=== PATIENT | female | born 1975 | race Caucasian/White ===

== ENCOUNTER 2018-01-18 13:10 | Emergency (ER) ==
[2018-01-18 13:22] VITALS: BP 131/81; TEMP 97.6; BMI 35.5
[2018-01-18] MEDS ORDERED: SODIUM CHLORIDE 1,000 ML IV STA (13:28)
[2018-01-18] MEDS ORDERED: ZOFRAN 4 MG/2 ML IVP STA (13:29)
[2018-01-18] MEDS ORDERED: DILAUDID 1 MG/ML SYRINGE IVP STA (13:29)
--- NOTE | 2018-01-18 13:33 | ED.PDOC ---
General ED Provider: Dr. ARIANA HERNANDEZ-ER Chief Complaint: Rash Stated Complaint: raj got this boil on my bottom--it popped a few weeks ago and now its back Time Seen by Physician: 13:31 Mode of Arrival: Walk-In Information Source: Patient, Family Primary Care Provider: QUENTIN LEONARD Nursing and Triage Documentation Reviewed and Agree: Yes Reviewed sepsis parameters & appropriate labs ordered?: Yes System Inflammatory Response Syndrome: Not Applicable Sepsis Protocol: For patient's 13 years and over: Temp is 96.8 and below OR 101 and greater Pulse >90 BPM Resp >20/minute Acutely Altered Mental Status Are patient's symptoms suggestive of a new infection, such as: -Pneumonia -Skin, Soft Tissue -Endocarditis -UTI -Bone, Joint Infection -Implantable Device -Acute Abdominal Infection -Wound Infection -Meningitis -Blood Stream Catheter Infection -Unknown Skin Complaint Exam - Skin/Soft Tissue Complaint/Exam Onset/Duration: 3 weeks ago Symptoms Are: Still present Timing: Constant Initial Severity: Mild Current Severity: Moderate Location: right buttock Character: Reports: Redness, Swelling, Raised, Painful Aggravating: Reports: Touch Alleviating: Reports: None Associated Signs and Symptoms: Reports: Fever, Chills, Drainage, Tenderness. Denies: Itching, Bruising, Red streaks, Joint swelling Related Surgical History: Reports: None Recent Exposure to Others w/Similar Symptoms: No Skin Findings: Present: Erythema, Fluctuant mass Joint Tenderness Present: No Differential Diagnoses: Abscess, Other Review of Systems - Review Of Systems Constitutional: Reports: No symptoms Eyes: Reports: No symptoms Ears, Nose, Mouth, Throat: Reports: No symptoms Respiratory: Reports: No symptoms Cardiac: Reports: No symptoms GI: Reports: No symptoms : Reports: No symptoms Musculoskeletal: Reports: No symptoms Skin: Reports: Lumps Neurological: Reports: No symptoms Endocrine: Reports: No symptoms Hematologic/Lymphatic: Reports: No symptoms All Other Systems: Reviewed and Negative Past Medical History - Past Medical History Previously Healthy: No Endocrine: Reports: DM 2, Hypothyroid Cardiovascular: Reports: None Respiratory: Reports: Asthma Hematological: Reports: None Gastrointestinal: Reports: None Genitourinary: Reports: None Neuro/Psych: Reports: Migraine Musculoskeletal: Reports: None Cancer: Reports: None Last Menstrual Period: 01/16/2018 - Surgical History General Surgical History: Reports: Cholecystectomy - Family History Family History: Reports: Unknown - Social History Smoking Status: Current every day smoker Hx Substance Use: No Alcohol Screening: None - Immunizations Tetanus Shot up to Date: Yes Physical Exam - Physical Exam Appearance: Well-appearing, No pain distress, Well-nourished Pain Distress: Moderate Eyes: EDUARDO, EOMI, Conjunctiva clear ENT: Ears normal Neck: Supple Respiratory: Airway patent, Breath sounds clear, Breath sounds equal, Respirations nonlabored Cardiovascular: RRR, Pulses normal, No rub, No murmur GI/: Soft, Nontender, No masses, Bowel sounds normal, No Organomegaly Musculoskeletal: Normal strength Skin: Warm, Dry, Normal color Neurological: Sensation intact, Alert Psychiatric: Affect appropriate, Mood appropriate, Anxious Critical Care Note - Critical Care Note Total Time (mins): 0 Course - Course Orders, Labs, Meds: Orders Category Date Time Status ED IV/MEDIPORT/POWERPORT .ONCE EMERGENCY 01/18/18 13:27 Active BLOOD CULTURE (ED ONLY) Stat LAB 01/18/18 Ordered CBC W/ AUTO DIFF Stat LAB 01/18/18 13:25 Ordered COMPREHENSIVE METABOLIC PANEL Stat LAB 01/18/18 13:25 Ordered LACTIC ACID Stat LAB 01/18/18 13:27 Ordered PROCALCITONIN Stat LAB 01/18/18 Ordered SERUM Stat LAB 01/18/18 13:27 Ordered 0.9 % Sodium Chloride [Saline Flush] MEDS 01/18/18 13:27 Ordered 1 syr IVF PRN PRN Hydromorphone HCl [Dilaudid 1 mg/ml Syringe] MEDS 01/18/18 13:29 Discontinued 1 mg IVP ONCE STA Ondansetron HCl/Pf [Zofran 4 mg/2 ml] MEDS 01/18/18 13:29 Discontinued 4 mg IVP ONCE STA Sodium Chloride 0.9% [Sodium Chloride] 1,000 ml MEDS 01/18/18 13:28 Active IV 100 mls/hr Vancomycin HCl [Vancomycin] 1,000 mg MEDS 01/18/18 13:29 Active 0.9 % Sodium Chloride [Sodium Chloride] 200 ml IV ONCE Medications Generic Name Dose Route Start Last Admin Trade Name Freq PRN Reason Stop Dose Admin Sodium Chloride 1,000 mls @ 100 mls/hr 01/18/18 13:28 Sodium Chloride IV 01/18/18 23:27 .Q10H STA Vancomycin HCl 1,000 mg/ 200 mls @ 100 mls/hr 01/18/18 13:29 Sodium Chloride IV 01/18/18 15:28 ONCE STA Sodium Chloride 1 syr 01/18/18 13:27 Saline Flush IVF PRN PRN To flush IV Discontinued Medications Generic Name Dose Route Start Last Admin Trade Name Freq PRN Reason Stop Dose Admin Hydromorphone HCl 1 mg 01/18/18 13:29 Dilaudid 1 Mg/Ml Syringe IVP 01/18/18 13:30 ONCE STA Ondansetron HCl 4 mg 01/18/18 13:29 Zofran 4 Mg/2 Ml IVP 01/18/18 13:30 ONCE STA Vital Signs: Temp Pulse Resp BP Pulse Ox 01/18/18 13:19 97.6 F 99 H 18 131/81 97 Departure - Departure Time of Disposition: 13:33 Disposition: HOME SELF-CARE Discharge Problem: Perirectal abscess Instructions: Abscess (ED) Condition: Good Pt referred to PMD for follow-up: No IPMP verified?: No Allergies/Adverse Reactions: Allergies amoxicillin [Amoxicillin] Adverse Reaction (Verified 04/22/16 08:44) cefaclor [From Ceclor] Adverse Reaction (Verified 04/22/16 08:44) cephalexin monohydrate [From Keflex] Adverse Reaction (Verified 04/22/16 08:44) ciprofloxacin [From Cipro] Adverse Reaction (Verified 04/22/16 08:44) ciprofloxacin HCl [From Cipro] Adverse Reaction (Verified 04/22/16 08:44) Latex, Natural Rubber Adverse Reaction (Verified 04/22/16 08:44) meperidine HCl [From Demerol] Adverse Reaction (Verified 04/22/16 08:44) Penicillins Adverse Reaction (Verified 04/22/16 08:44) Sulfa (Sulfonamide Antibiotics) Adverse Reaction (Verified 04/22/16 08:44) Home Medications: Ambulatory Orders Albuterol Sulfate [Proair Hfa] 2 puff IH Q6H PRN 11/18/13 Cyclobenzaprine HCl [Flexeril] 10 mg PO DAILY 11/18/13 Insulin Lispro [Humalog] 0 unit SQ DAILY 11/18/13 Gabapentin 900 mg PO QID 11/10/15 Albuterol Sulfate 0.083% Neb [Albuterol 0.083% Neb] 1 vial NEB RTQ4H 04/22/16 Hydrocodone/Acetaminophen [[place] 10-325 Tablet] 1 each PO QID PRN 04/22/16 Acetaminophen [Tylenol Extra Strength] 1 tab PO TID PRN 01/18/18 Clindamycin HCl 300 mg PO TID 01/18/18 Ibuprofen 600 mg PO BID 01/18/18 Lidocaine [Lidocaine Ointment 5%] 1 applic SUBDERMAL PRN PRN 01/18/18 Transfer Form Completed: Yes Disposition Discussed With: Patient, Family
[2018-01-18] MEDS ORDERED: VANCOMYCIN ONE (13:55)
[2018-01-18] MEDS: VANCOMYCIN 1,000 MG in SODIUM CHLORIDE 200 ML IV STA ×2 (14:03→14:59)
== END 2018-01-18 15:13 | disposition short-term general hospital (02) ==
LOC: ED 13:10
DX: K61.1 Rectal abscess (principal); F17.210 Nicotine dependence, cigarettes, uncomplicated
CPT/HCPCS: 36415; 80053; 83605; 84145; 84703; 85025; 87040; 96365; 96366; 96375; 99285

== ENCOUNTER 2018-01-18 15:18 | Outpatient (CLI) ==
[2018-01-18 13:22] VITALS: BMI 35.5
== END 2018-01-18 15:19 | disposition short-term general hospital (02) ==
LOC: AMBL 15:18
PROVIDERS: ATTEND Family Medicine
DX: K61.1 Rectal abscess (principal)

== ENCOUNTER 2018-03-25 15:21 | Emergency (ER) ==
[2018-03-25 15:29] VITALS: TEMP 98.7; BMI 35.0
[2018-03-25] MEDS ORDERED: ASPIRIN CHEWABLE PO STA (15:45)
--- NOTE | 2018-03-25 16:08 | DI ---
EXAM: Chest one view, frontal view only. HISTORY: Chest pain. COMPARISON: 04/22/2016. FINDINGS: The heart size is normal. There is no pulmonary vascular congestion. The lungs are clear . No pleural effusion or pneumothorax is seen. No acute osseous abnormality is identified. Since t he prior study, there has been no significant interval change. IMPRESSION: No acute cardiopulmonary process.
[2018-03-25 17:08] VITALS: BP 147/104
--- NOTE | 2018-03-25 17:21 | ED.PDOC ---
General ED Provider: Dr. TASHA LAO Chief Complaint: Shortness of Air Stated Complaint: CHEST PAIN Time Seen by Physician: 15:30 (THIS MORING WHILE WORKING AT [employer]) Mode of Arrival: Walk-In Information Source: Patient Exam Limitations: No limitations Primary Care Provider: QUENTIN LEONARD Referred to ED by: Other (SMOKES 1PK/DAY) Nursing and Triage Documentation Reviewed and Agree: Yes (NO CHEST INJURY) Reviewed sepsis parameters & appropriate labs ordered?: Yes System Inflammatory Response Syndrome: Not Applicable Sepsis Protocol: For patient's 13 years and over: Temp is 96.8 and below OR 101 and greater Pulse >90 BPM Resp >20/minute Acutely Altered Mental Status Are patient's symptoms suggestive of a new infection, such as: -Pneumonia -Skin, Soft Tissue -Endocarditis -UTI -Bone, Joint Infection -Implantable Device -Acute Abdominal Infection -Wound Infection -Meningitis -Blood Stream Catheter Infection -Unknown System Inflammatory Response Syndrome: Not Applicable Cardiovascular Complaint Exam - Chest Pain Complaint/Exam Onset: Gradual Duration: TODAY AT WORK Symptoms Are: Resolved Timing: Constant, Intermittent Length of Chest Pain Episodes: ALL DAY LONG Initial Severity: Moderate Current Severity: None Location: Reports: 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 Denies: Diaphoresis, Nausea, Vomiting, Fever, Palpitations, Cough, Hemoptysis, Back pain, Abdominal pain, Dizziness, Calf pain, Calf swelling Related History: Reports: Similar episode (FOR 1 YEAR) Related Surgical History: Reports: None History of Healthcare-Acquired Pneumonia: Reports: No AMI/ACS Risk Factors: Reports: Diabetes, Hypertension, Smoking, Dyslipidemia TAD Risk Factors: Reports: Hypertension, Smoking Pulmonary Embolism Risk Factors: Reports: Smoking Prior Care for this Complaint: No Recent Stress Test: No Recent Echo/LV Function: No JVD Present: No Subcutaneous Emphysema Present: No Diminshed Breath Sounds: No Reproducible Chest Wall Pain: No Bilateral Pulses Present: No Unequal Pulses Noted: No If Risk Factors for AMI/ACS Consider: EKG, Cardiac Enzymes Differential Diagnoses: Unstable Angina Quality Indicators For Acute MN or Cardiac Chest Pain: EKG in 10min. Review of Systems - Review Of Systems Constitutional: Reports: No symptoms Eyes: Reports: No symptoms Ears, Nose, Mouth, Throat: Reports: No symptoms Respiratory: Reports: Short of air (AT ONSET) Cardiac: Reports: Chest pain GI: Reports: No symptoms : Reports: No symptoms Musculoskeletal: Reports: No symptoms Skin: Reports: No symptoms Neurological: Reports: No symptoms Endocrine: Reports: No symptoms Hematologic/Lymphatic: Reports: No symptoms All Other Systems: Reviewed and Negative Past Medical History - Past Medical History Previously Healthy: No Endocrine: Reports: DM 2, Hypothyroid Cardiovascular: Reports: None Respiratory: Reports: Asthma Hematological: Reports: None Gastrointestinal: Reports: None Genitourinary: Reports: None Neuro/Psych: Reports: Migraine Musculoskeletal: Reports: None Cancer: Reports: None Last Menstrual Period: last month - Surgical History General Surgical History: Reports: Cholecystectomy - Family History Family History: Reports: Unknown - Social History Smoking Status: Current every day smoker, Heavy tobacco smoker Hx Substance Use: No Alcohol Screening: None Physical Exam - Physical Exam Appearance: Well-appearing, No pain distress, Well-nourished Eyes: EDUARDO, EOMI, Conjunctiva clear ENT: Ears normal, Nose normal, Oropharynx normal Respiratory: Airway patent, Breath sounds clear, Breath sounds equal, Respirations nonlabored Cardiovascular: RRR, Pulses normal, No rub, No murmur GI/: Soft, Nontender, No masses, Bowel sounds normal, No Organomegaly Musculoskeletal: Normal strength, ROM intact, No edema, No calf tenderness Skin: Warm, Dry, Normal color Neurological: Sensation intact, Motor intact, Reflexes intact, Cranial nerves intact, Alert, Oriented Psychiatric: Affect appropriate, Mood appropriate Interpretation - Radiology Interpretation Radiology Results: Negative Exam Interpreted: CXR Radiology Interpretation By: Radiologist - Director Of [employer] Rate: Normal Rhythm: Sinus Ectopy: None - EKG Interpretation Rate: Normal Rhythm: Sinus Ectopy: None [place]: NL ST Segment: Normal Re-Evaluation - Re-Evaluation Time of Re-Evaluation: 16:00 Status: Improved Vital Signs Stable: Yes Pain Level: 0 Appearance: NAD Lungs: Clear Skin: Warm and Dry Neuro: Alert and Oriented X3 CV: RRR - Re-Evaluation Time of Re-Evaluation: 17:24 Status: Improved Vital Signs Stable: Yes Pain Level: 0 Appearance: NAD Skin: Warm and Dry Neuro: Alert and Oriented X3 CV: RRR Critical Care Note - Critical Care Note Total Time (mins): 0 Course - Course Hematology/Chemistry: 03/25/18 15:35 03/25/18 15:45 Orders, Labs, Meds: Lab Review 03/25/18 03/25/18 03/25/18 15:35 15:45 15:45 WBC 10.79 H RBC 4.40 Hgb 14.2 Hct 38.9 MCV 88.4 MCH 32.3 H MCHC 36.5 H RDW Coeff of Nae 12.4 Plt Count 170 Immature Gran % (Auto) 0.4 Neut % (Auto) 54.1 Lymph % (Auto) 38.3 [place] % (Auto) 6.1 Eos % (Auto) 0.8 Baso % (Auto) 0.3 Immature Gran # (Auto) 0.0 Neut # (Auto) 5.8 Lymph # (Auto) 4.1 H [place] # (Auto) 0.7 Eos # (Auto) 0.1 Baso # (Auto) 0.0 PT 11.1 H INR 1.11 APTT 26.8 Sodium 136 Potassium 3.7 Chloride 100 Carbon Dioxide 25 Anion Gap 14.7 BUN 12 Creatinine 0.72 Estimated GFR (MDRD) 88.00 BUN/Creatinine Ratio 16.66 Glucose 252 H Calcium 9.6 Total Bilirubin 0.3 AST 40 H ALT 49 Alkaline Phosphatase 146 H Total Creatine Kinase 47 Troponin I < 0.0100 Total Protein 8.1 Albumin 3.2 L Globulin 4.9 Albumin/Globulin Ratio 0.65 Orders Category Date Time Status EKG-(ED ONLY) Stat CARDIO 03/25/18 15:45 Stop Req EKG-(ED ONLY) Stat CARDIO 03/25/18 17:13 Ordered ED IV/MEDIPORT/POWERPORT .ONCE EMERGENCY 03/25/18 15:45 Active CBC W/ AUTO DIFF Stat LAB 03/25/18 15:35 Completed COMPREHENSIVE METABOLIC PANEL Stat LAB 03/25/18 15:45 Completed CREATINE KINASE Stat LAB 03/25/18 15:45 Completed PARTIAL THROMBOPLASTIN TIME Stat LAB 03/25/18 15:45 Completed PT WITH INR Stat LAB 03/25/18 15:45 Completed TROPONIN I Stat LAB 03/25/18 15:45 Completed 0.9 % Sodium Chloride [Saline Flush] MEDS 03/25/18 15:44 Active 1 syr IVF PRN PRN CHEST, 1V AP ONLY Stat RADS 03/25/18 15:44 Completed Medications Generic Name Dose Route Start Last Admin Trade Name Freq PRN Reason Stop Dose Admin Sodium Chloride 1 syr 03/25/18 15:44 Saline Flush IVF PRN PRN To flush IV Vital Signs: Temp Pulse Resp BP Pulse Ox 03/25/18 17:07 88 13 147/104 H 98 03/25/18 15:21 98.7 F 102 H 20 162/90 H 98 RADHA Risk Score RADHA Risk Score: Risk Score Odds of by 30D 0 0.1 (0.1-0.2) 1 0.3 (0.2-0.3) 2 0.4 (0.3-0.5) 3 0.7 (0.6-0.9) 4 1.2 (1.0-1.5) 5 2.2 (1.9-2.6) 6 3.0 (2.5-3.6) 7 4.8 (3.8-6.1) Departure - Departure Time of Disposition: 17:25 Disposition: AMA Discharge Problem: Chest pain Qualifiers: Chest pain type: unspecified Qualified Code(s): R07.9 - Chest pain, unspecified Instructions: Chest Pain (ED) Condition: Good Pt referred to PMD for follow-up: Yes IPMP verified?: No Additional Instructions: Please call your Family Physician as soon as possible to schedule a follow-up appointment. Allergies/Adverse Reactions: Allergies amoxicillin [Amoxicillin] Adverse Reaction (Verified 03/25/18 15:30) cefaclor [From Ceclor] Adverse Reaction (Verified 03/25/18 15:30) cephalexin monohydrate [From Keflex] Adverse Reaction (Verified 03/25/18 15:30) ciprofloxacin [From Cipro] Adverse Reaction (Verified 03/25/18 15:30) ciprofloxacin HCl [From Cipro] Adverse Reaction (Verified 03/25/18 15:30) Latex, Natural Rubber Adverse Reaction (Verified 03/25/18 15:30) meperidine HCl [From Demerol] Adverse Reaction (Verified 03/25/18 15:30) Penicillins Adverse Reaction (Verified 03/25/18 15:30) Sulfa (Sulfonamide Antibiotics) Adverse Reaction (Verified 03/25/18 15:30) Home Medications: Ambulatory Orders Albuterol Sulfate [Proair Hfa] 2 puff IH Q6H PRN 11/18/13 Cyclobenzaprine HCl [Flexeril] 10 mg PO DAILY 11/18/13 Insulin Lispro [Humalog] 0 unit SQ DAILY 11/18/13 Gabapentin 900 mg PO BEDTIME 11/10/15 Albuterol Sulfate 0.083% Neb [Albuterol 0.083% Neb] 1 vial NEB RTQ4H 04/22/16 Hydrocodone/Acetaminophen [[place] 10-325 Tablet] 1 each PO QID PRN 04/22/16 Acetaminophen [Tylenol Extra Strength] 1 tab PO TID PRN 01/18/18 Ibuprofen 600 mg PO BID 01/18/18 Ibuprofen 800 mg PO BEDTIME 03/25/18 Disposition Discussed With: Patient
[2018-03-25] MEDS ORDERED: ZESTRIL PO STA (17:23)
== END 2018-03-25 17:45 | disposition left against medical advice (07) ==
LOC: ED 15:21
DX: R07.9 Chest pain, unspecified (principal); R06.02 Shortness of breath; I10 Essential (primary) hypertension; E78.5 Hyperlipidemia, unspecified; E11.9 Type 2 diabetes mellitus without complications; F17.210 Nicotine dependence, cigarettes, uncomplicated; E03.9 Hypothyroidism, unspecified; Z79.899 Other long term (current) drug therapy
CPT/HCPCS: 36415; 80053; 82550; 84484; 85025; 85610; 85730; 93005; 93010; 99284

== ENCOUNTER 2018-05-06 09:11 | Outpatient (CLI) ==
--- NOTE | 2018-05-06 10:53 | US ---
EXAM: Right breast ultrasound. History: Right breast palpable abnormality. Comparison: Bilateral mammogram 05/06/2018 Technique: Multiple sonographic images through the right breast were obtained. Color duplex Doppler was used to interrogate vascular flow. Findings: At 1 o'clock 14 cm from nipple in the area of concern anterior depth there is a 1.7 cm wel l circumscribed oval lesion. No other abnormalities are seen. Impression: Lesion within the right breast is most compatible with a benign lipoma or benign hamarto ma. Recommend followup routine screening mammography in 1 year. BIRADS 2
--- NOTE | 2018-05-06 12:17 | MAMMO ---
EXAM: Bilateral digital diagnostic mammogram (2-D and 3-D) History: Right breast palpable abnormality. Comparison: None available. Findings: MLO and CC views of bilateral breasts demonstrate scattered fibroglandular breast parenchy ma. Benign bilateral breast calcifications. No dominant masses and no architectural distortions. C AD was reviewed by the radiologist. Tomosynthesis was performed. Impression: Although no mammographic abnormalities are identified, recommend further evaluation with right breast ultrasound for the palpable event. BIRADS 0
== END 2018-05-06 09:12 | disposition home or self-care (01) ==
LOC: RAD 09:11
PROVIDERS: ATTEND Nurse Practitioner Family
DX: N63.12 Unspecified lump in the right breast, upper inner quadrant (principal)

== ENCOUNTER 2018-12-28 22:35 | Emergency (ER) ==
[2018-12-28 22:50] VITALS: BP 146/84; TEMP 98.7; BMI 33.2
--- NOTE | 2018-12-28 23:58 | ED.PDOC ---
General ED Provider: Dr. ARIANA HERNANDEZ-ER Chief Complaint: Syncope Stated Complaint: i was in the bathroom urinating and i passed out and hit my head--i have done this before Time Seen by Physician: 22:40 Mode of Arrival: Walk-In Information Source: Patient Exam Limitations: No limitations Primary Care Provider: QUENTIN LEONARD Nursing and Triage Documentation Reviewed and Agree: Yes Does patient meet sepsis criteria?: No System Inflammatory Response Syndrome: Not Applicable Sepsis Protocol: For patient's 13 years and over: Temp is 96.8 and below OR 101 and greater Pulse >90 BPM Resp >20/minute Acutely Altered Mental Status Are patient's symptoms suggestive of a new infection, such as: -Pneumonia -Skin, Soft Tissue -Endocarditis -UTI -Bone, Joint Infection -Implantable Device -Acute Abdominal Infection -Wound Infection -Meningitis -Blood Stream Catheter Infection -Unknown Neurological Complaint Exam - Syncope/Near Syncope Complaint/Exam Onset/Duration: today Symptoms Are: Resolved Number of Episodes: 1 Episodes Witnessed: Yes Loss of Consciousness: Yes Associated Head Trauma: Yes Activity at Onset: Unknown Aggravating: None Alleviating: Reports: Spontaneous resolution Associated Signs and Symptoms: Reports: Pain, Headache, Recent head trauma Related History: Similar episode Cardiac Risk Factors: Reports: Hypertension, Diabetes JVD Present: No Carotid Bruit Present: No Glascow Coma Scale (see protocol): 15 Nystagmus Present: No Gag Reflex Present: Yes Meningeal Signs Positive: No Focal Weakness: Present: None Focal Sensory Loss: Present: None Gait: Normal [id number]: Normal Findings Heel to Toe Normal: Yes Differential Diagnoses: Dysrhythmia, Insulin Rx, Medication Reaction, Vasovagal Episode Quality Indicator For Non-Traumatic Chest Pain/Syncope: EKG Performed Review of Systems - Review Of Systems Constitutional: Reports: No symptoms Eyes: Reports: No symptoms Ears, Nose, Mouth, Throat: Reports: No symptoms Respiratory: Reports: No symptoms Cardiac: Reports: Syncope GI: Reports: No symptoms : Reports: No symptoms Musculoskeletal: Reports: No symptoms Skin: Reports: No symptoms Neurological: Reports: Other (syncope) Endocrine: Reports: No symptoms Hematologic/Lymphatic: Reports: No symptoms All Other Systems: Reviewed and Negative Past Medical History - Past Medical History Previously Healthy: No Endocrine: Reports: DM 2, Hypothyroid Cardiovascular: Reports: None Respiratory: Reports: Asthma Hematological: Reports: None Gastrointestinal: Reports: None Genitourinary: Reports: None Neuro/Psych: Reports: Migraine Musculoskeletal: Reports: None Cancer: Reports: None Last Menstrual Period: 2 weeks ago - Surgical History General Surgical History: Reports: Cholecystectomy - Family History Family History: Reports: Unknown - Social History Smoking Status: Current every day smoker, Heavy tobacco smoker Hx Substance Use: No Alcohol Screening: None - Immunizations Tetanus Shot up to Date: Yes Physical Exam - Physical Exam Appearance: Well-appearing, No pain distress, Well-nourished Pain Distress: Mild Eyes: EDUARDO, EOMI, Conjunctiva clear ENT: Ears normal, Nose normal, Oropharynx normal Neck: Supple Respiratory: Airway patent, Breath sounds clear, Breath sounds equal, Respirations nonlabored Cardiovascular: RRR, Pulses normal, No rub, No murmur GI/: Soft, Nontender, No masses, Bowel sounds normal, No Organomegaly Musculoskeletal: Normal strength, ROM intact, No edema, No calf tenderness Skin: Warm, Dry, Normal color Neurological: Sensation intact, Motor intact, Reflexes intact, Cranial nerves intact, Alert, Oriented Psychiatric: Affect appropriate, Mood appropriate Interpretation - Radiology Interpretation Radiology Interpretation By: Radiologist Radiology Results: Negative Exam Interpreted: CT Scan - EKG Interpretation Time of EKG #1: 00:05 Rate: Normal Rhythm: Sinus Ectopy: None [place]: NL ST Segment: Normal Interpretation: nsr Critical Care Note - Critical Care Note Total Time (mins): 0 Course - Course Hematology/Chemistry: 12/28/18 23:20 12/28/18 23:20 Orders, Labs, Meds: Lab Review 12/28/18 12/28/18 12/28/18 23:05 23:20 23:20 WBC 11.71 H RBC 4.57 Hgb 14.3 Hct 40.1 MCV 87.7 MCH 31.3 H MCHC 35.7 H RDW Coeff of Nae 12.4 Plt Count 175 Immature Gran % (Auto) 0.3 Neut % (Auto) 58.2 Lymph % (Auto) 36.4 Hart % (Auto) 4.3 Eos % (Auto) 0.5 Baso % (Auto) 0.3 Immature Gran # (Auto) 0.0 Neut # (Auto) 6.8 Lymph # (Auto) 4.3 H Hart # (Auto) 0.5 Eos # (Auto) 0.1 Baso # (Auto) 0.0 Sodium 132.9 L Potassium 4.24 Chloride 96.5 L Carbon Dioxide 26.3 Anion Gap 14.34 BUN 18.1 H Creatinine 0.51 L Estimated GFR (MDRD) 131.00 BUN/Creatinine Ratio 35.49 Glucose 547.1 H* Hemoglobin A1c Calcium 8.95 Total Bilirubin 0.31 AST 39.5 H ALT 42.5 H Alkaline Phosphatase 180.6 H Total Creatine Kinase 34.6 Troponin I < 0.012 Total Protein 7.41 Albumin 3.78 Globulin 3.63 Albumin/Globulin Ratio 1.04 Serum , Qual Urine Color Yellow Urine Clarity Clear Urine pH 6.0 Ur Specific [place] <=1.005 Urine Protein Negative Urine Glucose (UA) 2+ Urine Ketones Negative Urine Blood Trace-intact Urine Nitrite Negative Urine Bilirubin Negative Urine Urobilinogen 0.2 Ur Leukocyte Esterase Negative Urine Microscopic RBC 0-2 Urine Microscopic WBC 0-2 Ur Squamous Epith Cells 2-5 Urine Bacteria Trace 12/28/18 12/28/18 23:20 23:20 WBC RBC Hgb Hct MCV MCH MCHC RDW Coeff of Nae Plt Count Immature Gran % (Auto) Neut % (Auto) Lymph % (Auto) Hart % (Auto) Eos % (Auto) Baso % (Auto) Immature Gran # (Auto) Neut # (Auto) Lymph # (Auto) Hart # (Auto) Eos # (Auto) Baso # (Auto) Sodium Potassium Chloride Carbon Dioxide Anion Gap BUN Creatinine Estimated GFR (MDRD) BUN/Creatinine Ratio Glucose Hemoglobin A1c 11.35 H Calcium Total Bilirubin AST ALT Alkaline Phosphatase Total Creatine Kinase Troponin I Total Protein Albumin Globulin Albumin/Globulin Ratio Serum , Qual Negative Urine Color Urine Clarity Urine pH Ur Specific [place] Urine Protein Urine Glucose (UA) Urine Ketones Urine Blood Urine Nitrite Urine Bilirubin Urine Urobilinogen Ur Leukocyte Esterase Urine Microscopic RBC Urine Microscopic WBC Ur Squamous Epith Cells Urine Bacteria Orders Category Date Time Status EKG-(ED ONLY) Stat CARDIO 12/28/18 23:12 Completed ABG Stat LAB 12/28/18 23:12 Ordered CBC W/ AUTO DIFF Stat LAB 12/28/18 23:20 Completed COMPREHENSIVE METABOLIC PANEL Stat LAB 12/28/18 23:20 Completed CREATINE KINASE Stat LAB 12/28/18 23:20 Completed HEMOGLOBIN A1C Stat LAB 12/28/18 23:20 Completed SERUM Stat LAB 12/28/18 23:20 Completed TROPONIN I Stat LAB 12/28/18 23:20 Completed URINALYSIS C & S IF INDICATED Stat LAB 12/28/18 23:[address] CERVICAL SPINE W/O CONTRAST Stat RADS 12/28/18 23:[address] HEAD W/O CONTRAST Stat RADS 12/28/18 23:13 Completed we wanted to place iv aNd treat her hyperglycemia but she refused and refused abg to see if she was acidotic Vital Signs: Temp Pulse Resp BP Pulse Ox 12/28/18 22:36 98.7 F 95 H 20 146/84 H 97 Departure - Departure Time of Disposition: 00:06 Disposition: AMA Discharge Problem: Syncope, Hyperglycemia, unspecified Head injury Qualifiers: Encounter type: initial encounter Qualified Code(s): S09.90XA - Unspecified injury of head, initial encounter Instructions: Syncope (ED), Head Injury (ED), Diabetic Hyperglycemia (ED) Condition: Stable Pt referred to PMD for follow-up: Yes IPMP verified?: No Additional Instructions: get back on your insulin---f/u with pcp Allergies/Adverse Reactions: Allergies amoxicillin [Amoxicillin] Adverse Reaction (Verified 12/28/18 22:50) cefaclor [From Ceclor] Adverse Reaction (Verified 12/28/18 22:50) cephalexin monohydrate [From Keflex] Adverse Reaction (Verified 12/28/18 22:50) ciprofloxacin [From Cipro] Adverse Reaction (Verified 12/28/18 22:50) ciprofloxacin HCl [From Cipro] Adverse Reaction (Verified 12/28/18 22:50) Latex, Natural Rubber Adverse Reaction (Verified 12/28/18 22:50) meperidine HCl [From Demerol] Adverse Reaction (Verified 12/28/18 22:50) Penicillins Adverse Reaction (Verified 12/28/18 22:50) Sulfa (Sulfonamide Antibiotics) Adverse Reaction (Verified 12/28/18 22:50) Home Medications: Ambulatory Orders Albuterol Sulfate [Proair Hfa] 2 puff IH Q6H PRN 11/18/13 Cyclobenzaprine HCl [Flexeril] 10 mg PO BEDTIME 11/18/13 Insulin Lispro [Humalog] 0 unit SQ DAILY 11/18/13 Gabapentin 900 mg PO BEDTIME 11/10/15 Albuterol Sulfate 0.083% Neb [Albuterol 0.083% Neb] 1 vial NEB RTQ4H 04/22/16 Acetaminophen [Tylenol Extra Strength] 1 tab PO TID PRN 01/18/18 Ibuprofen 600 mg PO BID 01/18/18 Ibuprofen 800 mg PO BEDTIME 03/25/18 Fenofibrate 160 mg PO BEDTIME 12/28/18 Lisinopril 0 mg PO DAILY 12/28/18 Disposition Discussed With: Patient, Family
--- NOTE | 2018-12-29 00:05 | CT ---
CT cervical spine without contrast HISTORY: Fall with neck pain TECHNIQUE: CT of the cervical spine with multiplanar reformations. FINDINGS: Reformatted images demonstrate normal alignment with preservation of vertebral body height . No significant degenerative change. No fracture seen on the axial or reformatted images. No acut e surrounding soft tissue abnormalitites. Lung apices are clear. IMPRESSION: No acute findings in the cervical spine.
--- NOTE | 2018-12-29 00:05 | CT ---
EXAM: CT scan brain without contrast HISTORY: Fall COMPARISON: CT scan brain 11/18/2013 FINDINGS: Contiguous axial images obtained from the skull base to the convexities without contrast u tilizing 5-mm collimation. Sagittal and coronal reconstructions were imaged and reviewed. The ventr icles and CSF spaces are within normal limits. There are no acute intracranial findings. Atheroscler otic changes are seen involving the cavernous internal carotid arteries. The paranasal sinuses and m astoid air cells are clear. The calvarium is intact. There is mild left frontal scalp swelling. IMPRESSION: No acute intracranial findings. Mild left frontal scalp swelling
== END 2018-12-29 00:10 | disposition left against medical advice (07) ==
LOC: ED 22:35
DX: R55 Syncope and collapse (principal); S09.90XA Unspecified injury of head, initial encounter; E11.65 Type 2 diabetes mellitus with hyperglycemia; I10 Essential (primary) hypertension; E03.9 Hypothyroidism, unspecified; F17.210 Nicotine dependence, cigarettes, uncomplicated; W19.XXXA Unspecified fall, initial encounter; Z79.899 Other long term (current) drug therapy; Z79.4 Long term (current) use of insulin
CPT/HCPCS: 36415; 80053; 81001; 82550; 83036; 84484; 84703; 85025; 93005; 93010; 99283; 99284

== ENCOUNTER 2019-02-17 18:09 | Emergency (ER) ==
[2019-02-17 18:16] VITALS: BP 122/76; TEMP 98.3; BMI 33.0
--- NOTE | 2019-02-17 18:29 | ED.PDOC ---
General Stated Complaint: Lt foot pain. Patient states she was going down some steps when felt as if her leg gave away and she fell with her lt leg bending beneath her. Has pain across top of foot. Has remained ambulatory. Time Seen by Physician: 18:20 Mode of Arrival: Wheelchair Information Source: Patient Exam Limitations: No limitations Nursing and Triage Documentation Reviewed and Agree: Yes Does patient meet sepsis criteria?: No If yes, has appropriate treatment been initiated?: No System Inflammatory Response Syndrome: Not Applicable <ARIANA BRODERICK - Last Filed: 02/17/19 19:14> <ARIANA FRANKLIN - Last Filed: 02/18/19 06:10> ED Provider: Dr. ARIANA FRANKLIN Chief Complaint: Foot Pain/Injury Primary Care Provider: QUENTIN LEONARD Sepsis Protocol: For patient's 13 years and over: Temp is 96.8 and below OR 101 and greater Pulse >90 BPM Resp >20/minute Acutely Altered Mental Status Are patient's symptoms suggestive of a new infection, such as: -Pneumonia -Skin, Soft Tissue -Endocarditis -UTI -Bone, Joint Infection -Implantable Device -Acute Abdominal Infection -Wound Infection -Meningitis -Blood Stream Catheter Infection -Unknown Musculoskeletal Complaint Exam - Ankle/Foot Complaint/Exam Location of Injury: Reports: Left, Foot Mechanism of Injury: Reports: Trauma Onset/Duration: approximatley 4-5 days ago Symptoms Are: Reports: Still present Onset of Pain: Reports: Immediate Initial Severity: Moderate Current Severity: Moderate Location: Reports: Discrete Character: Reports: Aching Alleviating: Reports: None Aggravating: Reports: Movement, Weight bearing Able to Bear Weight: Yes (walks with a limp) Associated Signs and Symptoms: Reports: Swelling (minimal localized swelling dorsal surface region 3rd MT), Bruising <ARIANA BRODERICK - Last Filed: 02/17/19 19:14> Review of Systems - Review Of Systems Constitutional: Reports: No symptoms (Lt foot) Eyes: Reports: No symptoms Ears, Nose, Mouth, Throat: Reports: No symptoms Respiratory: Reports: No symptoms Cardiac: Reports: No symptoms GI: Reports: No symptoms : Reports: No symptoms Musculoskeletal: Reports: Joint pain Skin: Reports: Change in hair/nails (fungal toenails), Other Neurological: Reports: No symptoms Endocrine: Reports: No symptoms Hematologic/Lymphatic: Reports: No symptoms All Other Systems: Reviewed and Negative <ARIANA BRODERICK Last Filed: 02/17/19 19:14> - Review Of Systems Constitutional: Reports: No symptoms Eyes: Reports: No symptoms Ears, Nose, Mouth, Throat: Reports: No symptoms Respiratory: Reports: No symptoms Cardiac: Reports: No symptoms GI: Reports: No symptoms : Reports: No symptoms Musculoskeletal: Reports: Joint pain Skin: Reports: No symptoms Neurological: Reports: No symptoms Endocrine: Reports: No symptoms Hematologic/Lymphatic: Reports: No symptoms All Other Systems: Reviewed and Negative <LYNNETTEISABELLAARIANA - Last Filed: 02/18/19 06:10> Past Medical History - Past Medical History Previously Healthy: No Endocrine: Reports: DM 2, Hypothyroid Cardiovascular: Reports: None Respiratory: Reports: Asthma Hematological: Reports: None Gastrointestinal: Reports: None Genitourinary: Reports: None Neuro/Psych: Reports: Migraine Musculoskeletal: Reports: None Cancer: Reports: None Last Menstrual Period: 2 weeks ago - Surgical History General Surgical History: Reports: Cholecystectomy - Family History Family History: Reports: Unknown - Social History Smoking Status: Current every day smoker, Heavy tobacco smoker Hx Substance Use: No Alcohol Screening: None <ARIANA BRODERICK - Last Filed: 02/17/19 19:14> - Past Medical History Previously Healthy: No Endocrine: Reports: DM 2, Hypothyroid, Unknown Cardiovascular: Reports: None Respiratory: Reports: Asthma Hematological: Reports: None Gastrointestinal: Reports: None Genitourinary: Reports: None Neuro/Psych: Reports: Migraine Musculoskeletal: Reports: None Cancer: Reports: None - Surgical History General Surgical History: Reports: Cholecystectomy - Family History Family History: Reports: Unknown - Social History Smoking Status: Current every day smoker, Heavy tobacco smoker <ARIANA FRANKLIN - Last Filed: 02/18/19 06:10> Physical Exam - Physical Exam Appearance: Well-appearing, No pain distress, Well-nourished Ill-appearing: None Pain Distress: Mild Eyes: EDUARDO, EOMI, Conjunctiva clear ENT: Ears normal, Nose normal, Oropharynx normal Neck: Supple Respiratory: Airway patent, Breath sounds clear, Breath sounds equal, Respirations nonlabored Cardiovascular: RRR, Pulses normal, No rub, No murmur GI/: Soft, Nontender, No masses, Bowel sounds normal, No Organomegaly Musculoskeletal: Normal strength, ROM intact (can exhibit dorsiflexion and plantar flexion lt foot -sl uncomfortable), No edema, No calf tenderness, Limited strength Skin: Warm, Dry, Normal color Neurological: Sensation intact, Motor intact, Reflexes intact, Cranial nerves intact, Alert, Oriented Psychiatric: Affect appropriate, Mood appropriate <ARIANA BRODERICK - Last Filed: 02/17/19 19:14> - Physical Exam Appearance: Well-appearing, No pain distress, Well-nourished Eyes: EDUARDO, EOMI, Conjunctiva clear ENT: Ears normal, Nose normal, Oropharynx normal Neck: Supple Respiratory: Airway patent, Breath sounds clear, Breath sounds equal, Respirations nonlabored Cardiovascular: RRR GI/: Soft, Nontender, No masses, Bowel sounds normal, No Organomegaly Musculoskeletal: Normal strength, ROM intact, No edema, No calf tenderness Skin: Warm, Dry, Normal color Neurological: Sensation intact, Motor intact, Reflexes intact, Cranial nerves intact, Alert, Oriented Psychiatric: Affect appropriate <DAVIDARIANA MASON - Last Filed: 02/18/19 06:10> Interpretation - Radiology Interpretation Radiology Interpretation By: Radiologist Radiology Results: Negative Exam Interpreted: CT Scan <DAVID-ARIANA MASON - Last Filed: 02/18/19 06:10> Physician Notification - Case Discussed Physician Notified: Dr Ruiz Time of Notification: 19:15 (will review scan and provide care through discharge ) <ARIANA BRODERICK - Last Filed: 02/17/19 19:14> Critical Care Note - Critical Care Note Total Time (mins): 0 <ARIANA BRODERICK - Last Filed: 02/17/19 19:14> - Course Orders, Labs, Meds: Lab Review 02/17/19 18:40 Urine Test Negative Orders Category Date Time Status CRUTCHES [ED CRUTCHES] .ONCE EMERGENCY 02/17/19 19:38 Active Cast shoe [ED SPLINT APPLICATION] .ONCE EMERGENCY 02/17/19 19:38 Active ED COLLINS WRAP .ONCE EMERGENCY 02/17/19 19:38 Active URINE Stat LAB 02/17/19 18:40 Completed Nalbuphine HCl [Nubain] MEDS 02/17/19 19:12 Discontinued 10 mg IM ONCE STA CT FOOT LEFT WITHOUT CONTRAST Stat RADS 02/17/19 18:25 Completed Medications Discontinued Medications Generic Name Dose Route Start Last Admin Trade Name Freq PRN Reason Stop Dose Admin Nalbuphine HCl 10 mg 02/17/19 19:12 02/17/19 19:22 Nubain IM 02/17/19 19:13 10 mg ONCE STA Administration Vital Signs: Temp Pulse Resp BP Pulse Ox 02/17/19 18:10 98.3 F 87 16 122/76 98 Departure <ARIANA BRODERICK - Last Filed: 02/17/19 19:14> - Departure Time of Disposition: 19:39 Pt referred to PMD for follow-up: Yes IPMP verified?: No Disposition Discussed With: Patient, Family <ARIANA FRANKLIN - Last Filed: 02/18/19 06:10> - Departure Disposition: HOME SELF-CARE Discharge Problem: Injury of foot Instructions: Foot Contusion (ED) Condition: Good Additional Instructions: f/u wtih pcp----ice---consider mri of foot if not improving Prescriptions: Ketorolac Tromethamine [Toradol] 10 mg PO Q6H PRN #20 tablet PRN Reason: FOOT PAIN Allergies/Adverse Reactions: Allergies amoxicillin [Amoxicillin] Adverse Reaction (Verified 02/17/19 18:17) cefaclor [From Ceclor] Adverse Reaction (Verified 02/17/19 18:17) cephalexin monohydrate [From Keflex] Adverse Reaction (Verified 02/17/19 18:17) ciprofloxacin [From Cipro] Adverse Reaction (Verified 02/17/19 18:17) ciprofloxacin HCl [From Cipro] Adverse Reaction (Verified 02/17/19 18:17) Latex, Natural Rubber Adverse Reaction (Verified 02/17/19 18:17) meperidine HCl [From Demerol] Adverse Reaction (Verified 02/17/19 18:17) Penicillins Adverse Reaction (Verified 02/17/19 18:17) Sulfa (Sulfonamide Antibiotics) Adverse Reaction (Verified 02/17/19 18:17) Home Medications: Ambulatory Orders Albuterol Sulfate [Proair Hfa] 2 puff IH Q6H PRN 11/18/13 Cyclobenzaprine HCl [Flexeril] 10 mg PO BEDTIME 11/18/13 Insulin Lispro [Humalog] 0 unit SQ DAILY 11/18/13 Gabapentin 900 mg PO BEDTIME 11/10/15 Albuterol Sulfate 0.083% Neb [Albuterol 0.083% Neb] 1 vial NEB RTQ4H 04/22/16 Acetaminophen [Tylenol Extra Strength] 1 tab PO TID PRN 01/18/18 Ibuprofen 800 mg PO BEDTIME 03/25/18 Fenofibrate 160 mg PO BEDTIME 12/28/18 Lisinopril 10 mg PO DAILY 12/28/18 Ketorolac Tromethamine [Toradol] 10 mg PO Q6H PRN #20 tablet 02/17/19
[2019-02-17 19:05] LABS: URINE PREGNANCY TEST NEGATIVE (NEGATIVE)
[2019-02-17] MEDS ORDERED: NUBAIN IM STA (19:12)
--- NOTE | 2019-02-17 19:37 | CT ---
EXAM: CT left foot without contrast HISTORY: Fall with severe pain in the metatarsals. COMPARISON: None TECHNIQUE: Serial axial images of the left foot were obtained without contrast. These were viewed i n multiple planes. FINDINGS: Distal tibia and fibula are normal. The talus is normal. The calcaneus is unremarkable. Tarsal bones are normal. The metatarsals demonstrate no displaced fracture. The osseous structures of the toes are normal. Tendinous structures are normal. Soft tissues are normal. There is scatter ed hazy ground-glass in the foot. IMPRESSION: 1. No acute fracture or dislocation. 2. Hazy ground-glass in the subcutaneous fat likely representing mild inflammation versus edema.
== END 2019-02-17 19:48 | disposition home or self-care (01) ==
LOC: ED 18:09
DX: S99.922A Unspecified injury of left foot, initial encounter (principal); W10.9XXA Fall (on) (from) unspecified stairs and steps, initial encounter; F17.210 Nicotine dependence, cigarettes, uncomplicated
CPT/HCPCS: 81025; 96372; 99283

== ENCOUNTER 2019-05-07 20:28 | Emergency (ER) ==
[2019-05-07 20:33] VITALS: BP 150/84; TEMP 99.2; BMI 33.6
--- NOTE | 2019-05-07 20:48 | ED.PDOC ---
General ED Provider: Dr. ARIANA FRANKLIN Chief Complaint: Fever Stated Complaint: my sinuses are draining down into my chest Time Seen by Physician: 20:30 Mode of Arrival: Walk-In Information Source: Patient Exam Limitations: No limitations Primary Care Provider: ARIANA FRANKLIN Nursing and Triage Documentation Reviewed and Agree: Yes Does patient meet sepsis criteria?: No System Inflammatory Response Syndrome: Not Applicable Sepsis Protocol: For patient's 13 years and over: Temp is 96.8 and below OR 101 and greater Pulse >90 BPM Resp >20/minute Acutely Altered Mental Status Are patient's symptoms suggestive of a new infection, such as: -Pneumonia -Skin, Soft Tissue -Endocarditis -UTI -Bone, Joint Infection -Implantable Device -Acute Abdominal Infection -Wound Infection -Meningitis -Blood Stream Catheter Infection -Unknown Respiratory Complaint Exam - Respiratory Complaint/Exam Onset/Duration: 2 days Symptoms Are: Still present Timing: Constant Initial Severity: Mild Current Severity: Moderate Character: Reports: Productive cough Aggravating: Reports: URI Associated Signs and Symptoms: Reports: Fever, Chills, URI, Nasal congestion, Sinus discomfort, Sore throat. Denies: Rapid breathing, Dyspnea, Chest pain, Pleuritic chest pain, Wheezing, Hemoptysis, Dizziness, Calf pain, Calf swelling , Edema Home Oxygen Use: No Recent Stress Test: No Recent Echo/LV Function: No Current Antibiotic Use: No Current Asthma Medication Use: No Respiratory Distress: None Inadequate Respiratory Effort: No Dysphagia Present: No Stridor Present: No JVD Present: No Accessory Muscle Use: No Retractions: Not Present Diminished Breath Sounds: No Sinus Tenderness: Maxillary Grunting Respirations: No Kussmaul Respirations: No Differential Diagnoses: Bronchitis, Sinusitis Review of Systems - Review Of Systems Constitutional: Reports: No symptoms Eyes: Reports: No symptoms Ears, Nose, Mouth, Throat: Reports: Nose discharge Respiratory: Reports: Cough Cardiac: Reports: No symptoms GI: Reports: No symptoms : Reports: No symptoms Musculoskeletal: Reports: No symptoms Skin: Reports: No symptoms Neurological: Reports: No symptoms Endocrine: Reports: No symptoms Hematologic/Lymphatic: Reports: No symptoms All Other Systems: Reviewed and Negative Past Medical History - Past Medical History Previously Healthy: No Endocrine: Reports: DM 2, Hypothyroid, Unknown Cardiovascular: Reports: None Respiratory: Reports: Asthma Hematological: Reports: None Gastrointestinal: Reports: None Genitourinary: Reports: None Neuro/Psych: Reports: Migraine Musculoskeletal: Reports: None Cancer: Reports: None Last Menstrual Period: 04/17/2019 - Surgical History General Surgical History: Reports: Cholecystectomy - Family History Family History: Reports: Unknown - Social History Smoking Status: Current every day smoker Hx Substance Use: No Alcohol Screening: None - Immunizations Tetanus Shot up to Date: (unknown) Physical Exam - Physical Exam Appearance: Well-appearing, No pain distress, Well-nourished Eyes: EDUARDO, EOMI, Conjunctiva clear ENT: Rhinorrhea Neck: Supple Respiratory: Rhonchi Cardiovascular: RRR, Pulses normal, No rub, No murmur GI/: Soft, Nontender, No masses, Bowel sounds normal, No Organomegaly Musculoskeletal: Normal strength, ROM intact, No edema, No calf tenderness Skin: Warm, Dry, Normal color Neurological: Sensation intact, Motor intact, Reflexes intact, Cranial nerves intact, Alert, Oriented Psychiatric: Affect appropriate Critical Care Note - Critical Care Note Total Time (mins): 0 Course - Course Vital Signs: Temp Pulse Resp BP Pulse Ox 05/07/19 20:28 99.2 F 94 H 20 150/84 H 95 Departure - Departure Time of Disposition: 20:47 Disposition: HOME SELF-CARE Discharge Problem: Bronchitis Sinusitis, acute Qualifiers: Sinusitis location: unspecified location Recurrence: non-recurrent Qualified Code(s): J01.90 - Acute sinusitis, unspecified Instructions: Rhinosinusitis (ED) Condition: Good Pt referred to PMD for follow-up: Yes IPMP verified?: No Additional Instructions: f/u wtih pcp if not improving Allergies/Adverse Reactions: Allergies amoxicillin [Amoxicillin] Adverse Reaction (Verified 05/07/19 20:37) cefaclor [From Ceclor] Adverse Reaction (Verified 05/07/19 20:37) cephalexin monohydrate [From Keflex] Adverse Reaction (Verified 05/07/19 20:37) ciprofloxacin [From Cipro] Adverse Reaction (Verified 05/07/19 20:37) ciprofloxacin HCl [From Cipro] Adverse Reaction (Verified 05/07/19 20:37) ketorolac [From Toradol] Adverse Reaction (Verified 05/07/19 20:37) Latex, Natural Rubber Adverse Reaction (Verified 05/07/19 20:37) meperidine HCl [From Demerol] Adverse Reaction (Verified 05/07/19 20:37) Penicillins Adverse Reaction (Verified 05/07/19 20:37) sitagliptin [From Januvia] Adverse Reaction (Verified 05/07/19 20:37) Sulfa (Sulfonamide Antibiotics) Adverse Reaction (Verified 05/07/19 20:37) Home Medications: Ambulatory Orders Albuterol Sulfate [Proair Hfa] 2 puff IH Q6H PRN 11/18/13 Cyclobenzaprine HCl [Flexeril] 10 mg PO BEDTIME 11/18/13 Insulin Lispro [Humalog] 0 unit SQ DAILY 11/18/13 Gabapentin 900 mg PO BEDTIME 11/10/15 Albuterol Sulfate 0.083% Neb [Albuterol 0.083% Neb] 1 vial NEB RTQ4H 04/22/16 Acetaminophen [Tylenol Extra Strength] 1 tab PO TID PRN 01/18/18 Ibuprofen 800 mg PO BEDTIME 03/25/18 Lisinopril 10 mg PO DAILY 12/28/18 Levofloxacin [Levaquin] 500 mg PO BID 7 Days #14 tablet NS 04/13/19 Tramadol HCl 50 mg PO QID PRN 04/13/19 Disposition Discussed With: Patient, Family
== END 2019-05-07 21:10 | disposition home or self-care (01) ==
LOC: ED 20:28
DX: J40 Bronchitis, not specified as acute or chronic (principal); J01.90 Acute sinusitis, unspecified; F17.210 Nicotine dependence, cigarettes, uncomplicated
CPT/HCPCS: 99282

== ENCOUNTER 2022-01-31 21:08 | Inpatient (IN) ==
[2022-01-31] MEDS ORDERED: SODIUM CHLORIDE 1,000 ML IV STA (21:10)
--- NOTE | 2022-01-31 21:13 | ED.PDOC ---
General ED Provider: Dr. WILLIAM ALEXANDER Chief Complaint: Non-specific Complaint Stated Complaint: Told to come to the ER by PCP due to elevated potassium. Was not told what was. Time Seen by Provider: 01/31/22 21:10 Mode of Arrival: Wheelchair Information Source: Patient Primary Care Provider: QUENTIN LEONARD Nursing and Triage Documentation Reviewed and Agree: Yes Does patient meet sepsis criteria?: No If yes, has appropriate treatment been initiated?: No System Inflammatory Response Syndrome: Not Applicable Sepsis Protocol: For patient's 13 years and over: Temp is 96.8 and below OR 101 and greater Pulse >90 BPM Resp >20/minute Acutely Altered Mental Status Are patient's symptoms suggestive of a new infection, such as: -Pneumonia -Skin, Soft Tissue -Endocarditis -UTI -Bone, Joint Infection -Implantable Device -Acute Abdominal Infection -Wound Infection -Meningitis -Blood Stream Catheter Infection -Unknown Review of Systems Review Of Systems Constitutional: Reports No symptoms Eyes: Reports No symptoms Ears, Nose, Mouth, Throat: Reports No symptoms Respiratory: Reports No symptoms Cardiac: Reports Chest pain (mild intermitent non now ) GI: Reports No symptoms : Reports No symptoms Musculoskeletal: Reports No symptoms Skin: Reports No symptoms Neurological: Reports No symptoms Endocrine: Reports No symptoms Hematologic/Lymphatic: Reports No symptoms All Other Systems: Reviewed and Negative [facility] Medical History (Updated 02/01/22 @ 00:44 by WILLIAM ALEXANDER MD) Arthritis Asthma Bipolar 1 disorder CHF (congestive heart failure) COPD (chronic obstructive pulmonary disease) Diabetes mellitus HTN (hypertension) Hyperlipidemia Hypothyroidism Kidney stones, calcium oxalate Migraines Family History (Updated 02/01/22 @ 00:41 by WILLIAM ALEXANDER MD) Other No pertinent family history Social History Smoking and tobacco status: Current every day smoker Tobacco type: cigarettes Female Reproductive History Menstrual Hx Hysterectomy: No Hx Tubal Ligation: No Physical Exam Physical Exam Appearance: Reports Well-appearing Ill-appearing: None Pain Distress: None Eyes: Reports EDUARDO, EOMI and Conjunctiva clear ENT: Reports Ears normal, Nose normal and Oropharynx normal Neck: Supple Respiratory: Reports Airway patent, Breath sounds clear, Breath sounds equal and Respirations nonlabored Cardiovascular: Reports RRR, Pulses normal, No rub and No murmur GI/: Reports Soft, Nontender, No masses, Bowel sounds normal and No Or ganomegaly Musculoskeletal: Reports Normal strength, ROM intact, No edema and No calf tenderness Skin: Reports Warm, Dry and Normal color Neurological: Reports Motor intact, Reflexes intact, Cranial nerves intact, Alert and Oriented Psychiatric: Reports Affect appropriate and Mood appropriate Interpretation EKG Interpretation Time of EKG #1: 21:30 Rate: Normal Rhythm: Sinus Ectopy: None [place]: NL ST Segment: Normal Interpretation: LVH Critical Care Note Critical Care Note Total Critical Care Time (mins): 30 Course Course Hematology/Chemistry: 01/31/22 21:23 01/31/22 23:26 Orders, Labs, Meds: Lab Review 01/31/22 01/31/22 01/31/22 21:23 21:23 21:23 WBC 6.39 RBC 3.78 L Hgb 11.3 L Hct 33.1 L MCV 87.6 MCH 29.9 MCHC 34.1 RDW Coeff of Nae 14.0 Plt Count 103 L Immature Gran % (Auto) 0.3 Neut % (Auto) 61.9 Lymph % (Auto) 28.3 Stearns % (Auto) 7.4 Eos % (Auto) 1.6 Baso % (Auto) 0.5 Neut # (Auto) 4.0 Lymph # (Auto) 1.8 Stearns # (Auto) 0.5 Eos # (Auto) 0.1 Baso # (Auto) 0.0 Immature Gran # (Auto) 0.0 Sodium 135.1 Potassium 5.98 H Chloride 104.1 Carbon Dioxide 26.3 Anion Gap 10.68 BUN 57.4 H Creatinine 1.05 Estimated GFR (MDRD) 56.00 BUN/Creatinine Ratio 54.66 Glucose 264.8 H Calcium 8.86 Magnesium 1.93 Total Bilirubin 0.40 AST 47.4 H ALT 41.4 H Alkaline Phosphatase 293.4 H Total Creatine Kinase 46.9 Troponin I 0.140 H NT-Pro-B Natriuret Pep Total Protein 7.84 Albumin 3.92 Globulin 3.92 Albumin/Globulin Ratio 1.00 Adenovirus (PCR) B. pertussis DNA (PCR) B.parapertussis DNA PCR C. pneumoniae DNA (PCR) Coronavirus OC43 (PCR) Coronavirus HKU1 (PCR) Coronavirus 229E (PCR) Coronavirus NL63 (PCR) Human Metapneumovir PCR Influenza Type A (PCR) Influenza B (RT-PCR) M. pneumoniae (PCR) Parainfluenza 1 (PCR) Parainfluenza 2 (PCR) Parainfluenza 3 (PCR) Parainfluenza 4 (PCR) RSV (PCR) Entero/Rhino (PCR) SARS-CoV-2 (PCR) 01/31/22 01/31/22 01/31/22 22:00 23:26 23:26 WBC RBC Hgb Hct MCV MCH MCHC RDW Coeff of Nae Plt Count Immature Gran % (Auto) Neut % (Auto) Lymph % (Auto) Stearns % (Auto) Eos % (Auto) Baso % (Auto) Neut # (Auto) Lymph # (Auto) Stearns # (Auto) Eos # (Auto) Baso # (Auto) Immature Gran # (Auto) Sodium Potassium 5.36 H Chloride Carbon Dioxide Anion Gap BUN Creatinine Estimated GFR (MDRD) BUN/Creatinine Ratio Glucose Calcium Magnesium Total Bilirubin AST ALT Alkaline Phosphatase Total Creatine Kinase Troponin I 0.146 H NT-Pro-B Natriuret Pep 2330.000 H Total Protein Albumin Globulin Albumin/Globulin Ratio Adenovirus (PCR) Not detected B. pertussis DNA (PCR) Not detected B.parapertussis DNA PCR Not detected C. pneumoniae DNA (PCR) Not detected Coronavirus OC43 (PCR) Not detected Coronavirus HKU1 (PCR) Not detected Coronavirus 229E (PCR) Detected H Coronavirus NL63 (PCR) Not detected Human Metapneumovir PCR Not detected Influenza Type A (PCR) Not detected Influenza B (RT-PCR) Not detected M. pneumoniae (PCR) Not detected Parainfluenza 1 (PCR) Not detected Parainfluenza 2 (PCR) Not detected Parainfluenza 3 (PCR) Not detected Parainfluenza 4 (PCR) Not detected RSV (PCR) Not detected Entero/Rhino (PCR) Not detected SARS-CoV-2 (PCR) Not detected Orders Category Date Time Status PLACE PATIENT OBSERVATION .TO MEDSURG (MONITORED BED ADMISSION 02/01/22 00:23 Ordered ) EKG-(ED ONLY) Stat CARDIO 01/31/22 21:11 Completed EKG-(ED ONLY) Stat CARDIO 02/01/22 00:23 Ordered EKG-(IP & OP ONLY) Routine CARDIO 02/01/22 08:00 Ordered METERED DOSE INHALATION Routine CARDIO 02/01/22 00:31 Ordered NEBULIZER TREATMENT Routine CARDIO 02/01/22 00:31 Ordered NEBULIZER TREATMENT Stat CARDIO 02/01/22 00:31 Ordered ACTIVITY .Up ad Rosio CARE 02/01/22 00:25 Ordered BLOOD GLUCOSE MONITORING (MED/SURG) 0630,1100,1700,2100 CARE 02/01/22 00:26 Ordered INTAKE & OUTPUT Q8HR CARE 02/01/22 00:24 Ordered TELEMETRY MONITORING TELE CARE 02/01/22 00:24 Ordered VITAL SIGNS Q4HR CARE 02/01/22 00:25 Ordered CARDIAC DIET DIETARY 02/01/22 Breakfast Ordered ED HOT DIE PRESS OPERATOR APPLIED .ONCE EMERGENCY 01/31/22 21:10 Active ED IV/MEDIPORT/POWERPORT .ONCE EMERGENCY 01/31/22 21:10 Active BMP [BASIC METABOLIC PANEL] DAILY@0600 LAB 02/01/22 06:00 Ordered BMP [BASIC METABOLIC PANEL] DAILY@0600 LAB 02/02/22 06:00 Ordered CBC W/ AUTO DIFF DAILY@0600 LAB 02/01/22 06:00 Ordered CBC W/ AUTO DIFF DAILY@0600 LAB 02/02/22 06:00 Ordered CBC W/ AUTO DIFF Stat LAB 01/31/22 21:23 Completed CBC W/ AUTO DIFF Stat LAB 02/01/22 00:23 Ordered COMPREHENSIVE METABOLIC PANEL Stat LAB 01/31/22 21:23 Completed COMPREHENSIVE METABOLIC PANEL Stat LAB 02/01/22 00:23 Ordered CREATINE KINASE Q8H LAB 02/01/22 06:30 Ordered CREATINE KINASE Q8H LAB 02/01/22 14:30 Ordered CREATINE KINASE Stat LAB 01/31/22 21:23 Completed CREATINE KINASE Stat LAB 02/01/22 00:23 Ordered MAGNESIUM Stat LAB 01/31/22 21:23 Completed POTASSIUM Stat LAB 01/31/22 23:26 Completed PRO-BNP [NT-PROBNP] Stat LAB 01/31/22 22:00 Completed RESPIRATORY PANEL 2.1 (PCR) Stat LAB 01/31/22 23:26 Ordered TROPONIN I Q8H LAB 02/01/22 06:30 Ordered TROPONIN I Q8H LAB 02/01/22 14:30 Ordered TROPONIN I Stat LAB 01/31/22 21:23 Completed TROPONIN I Stat LAB 01/31/22 23:26 Completed TROPONIN I Stat LAB 02/01/22 00:23 Ordered 0.9 % Sodium Chloride [Saline Flush] MEDS 01/31/22 21:10 Active 1 syr IVF PRN PRN Albuterol Inhaler(with Spacer) [Ventolin Hfa (Per Puff- MEDS 02/01/22 00:30 Ordered with Spacer)] 2 puff IH Q6H PRN Albuterol Sulfate 0.083% Neb [Albuterol 0.083% Neb] MEDS 02/01/22 00:30 Ordered 1 vial NEB RTQ4H PRN Atorvastatin Calcium [Lipitor] MEDS 02/01/22 09:00 Ordered 10 mg PO DAILY Bumetanide [Bumex] MEDS 02/01/22 09:00 Ordered 1 mg PO DAILY Clopidogrel Bisulfate [Plavix] MEDS 02/01/22 09:00 Ordered 75 mg PO DAILY Cyclobenzaprine HCl [Flexeril] MEDS 02/01/22 09:00 Ordered 10 mg PO QID Enoxaparin Sodium [Lovenox] MEDS 02/01/22 09:00 Ordered 40 mg SUBCUT DAILY Gabapentin [Neurontin] MEDS 02/01/22 09:00 Ordered 900 mg PO QID Insulin Glargine,Hum.rec.anlog [Lantus] MEDS 02/01/22 09:00 Ordered 50 unit SUBCUT DAILY Insulin Regular, Human [Humulin R] MEDS 02/01/22 00:23 Ordered See Protocol SUBCUT PRN PRN Levothyroxine Sodium [Synthroid] MEDS 02/01/22 09:00 Ordered 75 mcg PO DAILY Losartan Potassium [Cozaar] MEDS 02/01/22 09:00 Ordered 50 mg PO DAILY Metformin HCl [Glucophage] MEDS 02/01/22 09:00 Ordered 1,000 mg PO BID Montelukast Sodium [Singulair] MEDS 02/01/22 09:00 Ordered 10 mg PO DAILY Ondansetron HCl/Pf [Zofran 4 mg/2 ml] MEDS 02/01/22 00:23 Ordered 4 mg IVP Q6H PRN Promethazine HCl [Phenergan Tab] MEDS 02/01/22 09:00 Ordered 25 mg PO DAILY Sertraline HCl [Zoloft] MEDS 02/01/22 09:00 Ordered 150 mg PO DAILY Sodium Chloride 0.9% [Sodium Chloride] 1,000 ml MEDS 01/31/22 21:10 Active IV 125 mls/hr Sodium Polystyrene Sulfonate [Kayexalate Susp] MEDS 02/02/22 09:00 Ordered 20 gm PO DAILY Sodium Polystyrene Sulfonate [Kayexalate Susp] MEDS 01/31/22 22:14 Discontinued 20 gm PO ONCE ONE insulin lispro [Admelog SoloStar U-100 Insulin] MEDS 02/01/22 00:30 Ordered 45 unit SUBCUT DIRECTED RESUSCITATION STATUS Routine OTHERS 02/01/22 00:23 Ordered Medications Generic Name Dose Route Start Last Admin Trade Name Freq PRN Reason Stop Dose Admin Albuterol Sulfate 2 puff 02/01/22 00:30 Albuterol Sulfate (Ventolin Hfa) 18 Gm 1 Puff With Spacer IH Q6H PRN Dysonea Enoxaparin Sodium 40 mg 02/01/22 09:00 Enoxaparin Sodium 40 Mg/0.4 Ml Syr SUBCUT DAILY PRATEEK Sodium Chloride 1,000 mls @ 125 mls/hr 01/31/22 21:10 01/31/22 22:10 Sodium Chloride IV 02/01/22 05:09 125 mls/hr .Q8H STA Administration Insulin Human Regular 0 unit 02/01/22 00:23 Insulin Regular, Human 100 Unit/Ml (3ml) Vial SUBCUT PRN PRN Hyperglycemia Protocol Ondansetron HCl 4 mg 02/01/22 00:23 Ondansetron Hcl/Pf 4 Mg/2 Ml Sdv IVP Q6H PRN Nausea / Vomiting Sodium Chloride 1 syr 01/31/22 21:10 0.9% Sodium Chloride 10 Ml Disp.Syrin IVF PRN PRN To flush IV Sodium Polystyrene Sulfonate 20 gm 02/02/22 09:00 Sodium Polystyrene Sulfonate 15 Gm/60 Ml Btl PO DAILY PRATEEK Discontinued Medications Generic Name Dose Route Start Last Admin Trade Name Freq PRN Reason Stop Dose Admin Sodium Polystyrene Sulfonate 20 gm 01/31/22 22:14 01/31/22 22:24 Sodium Polystyrene Sulfonate 15 Gm/60 Ml Btl PO 01/31/22 22:15 20 gm ONCE ONE Administration Vital Signs: Temp Pulse Resp BP Pulse Ox 01/31/22 21:11 98.9 F 64 16 153/84 H 98 Discharge Plan Discharge ED Provider: WILLIAM ALEXANDER Physician Progress Note: []
[2022-01-31 21:36] LABS: BASOPHILS % (AUTO) 0.5 % (0.0-3.0); EOSINOPHILS # (AUTO) 0.1 K/ul (0.0-0.7); EOSINOPHILS % (AUTO) 1.6 % (0.0-7.0); HEMATOCRIT 33.1 % (37.0-47.0); HEMOGLOBIN 11.3 g/dl (12.0-16.0); IMMATURE GRANULOCYTE % (AUTO) 0.3 % (0.0-5.0); LYMPHOCYTES # (AUTO) 1.8 K/uL (0.60-3.4); LYMPHOCYTES % (AUTO) 28.3 (10.0-50.0); MEAN CORPUSCULAR HEMOGLOBIN 29.9 pg (27.0-31.0); MEAN CORPUSCULAR HGB CONC 34.1 (31.8-35.4); MEAN CORPUSCULAR VOLUME 87.6 fl (81.0-99.0); MONOCYTES # (AUTO) 0.5 K/uL (0.4-2.0); MONOCYTES % (AUTO) 7.4 (0-10); NEUTROPHILS % (AUTO) 61.9 % (42.2-75.2); PLATELET COUNT 103 10^3/uL (140-440); RED BLOOD COUNT 3.78 10^6/ul (4.20-5.40); WHITE BLOOD COUNT 6.39 K/ul (4.6-10.2)
[2022-01-31 21:45] LABS: ALANINE AMINOTRANSFERASE 41.4 U/L (0-35); ALBUMIN 3.92 g/dL (3.5-5.0); ALKALINE PHOSPHATASE 293.4 U/L (38-126); ASPARTATE AMINO TRANSFERASE 47.4 U/L (14-36); BILIRUBIN,TOTAL 0.4 mg/dL (0.2-1.3); BLOOD UREA NITROGEN 57.4 mg/dL (7-17); CALCIUM 8.86 mg/dL (8.4-10.2); CARBON DIOXIDE 26.3 mmol/L (22-30.0); CHLORIDE 104.1 mmol/L (98-107); CREATINE KINASE 46.9 U/L (30-135); CREATININE 1.05 mg/dL (0.60-1.30); GLUCOSE 264.8 mg/dL (74-106); POTASSIUM 5.98 mmol/L (3.5-5.1); SODIUM 135.1 mmol/L (134.5-145); TOTAL PROTEIN 7.84 g/dL (6.3-8.2)
[2022-01-31 21:56] LABS: TROPONIN I 0.14 ng/ml (0.0000-0.120)
[2022-01-31] MEDS ORDERED: KAYEXALATE SUSP PO ONE (22:14)
[2022-01-31 23:54] LABS: POTASSIUM 5.36 mmol/L (3.5-5.1)
[2022-02-01 00:10] LABS: TROPONIN I 0.146 ng/ml (0.0000-0.120)
[2022-02-01] MEDS ORDERED: ZOFRAN 4 MG/2 ML IVP PRN (00:23)
[2022-02-01] MEDS ORDERED: HUMULIN R SUBCUT PRN (00:23)
[2022-02-01] MEDS ORDERED: ALBUTEROL 0.083% NEB NEB PRN (00:30)
[2022-02-01] MEDS ORDERED: VENTOLIN HFA (PER PUFF-WITH SPACER) IH PRN (00:30)
[2022-02-01 00:33] LABS: ADENOVIRUS (PCR) NOT DETECTED (NOT DETECT); BORDETELLA PARAPERTUSSIS (PCR) NOT DETECTED (NOT DETECT); BORDETELLA PERTUSSIS (PCR) NOT DETECTED (NOT DETECT); CHLAMYDIA PNEUMONIAE (PCR) NOT DETECTED (NOT DETECT); CORONAVIRUS HKU1 (PCR) NOT DETECTED (NOT DETECT); CORONAVIRUS NL63 (PCR) NOT DETECTED (NOT DETECT); CORONAVIRUS OC43 (PCR) NOT DETECTED (NOT DETECT); HUMAN METAPNEUMOVIRUS (PCR) NOT DETECTED (NOT DETECT); HUMAN RHINOVIRUS/ENTEROV (PCR) NOT DETECTED (NOT DETECT); INFLUENZA B (PCR) NOT DETECTED (NOT DETECT); MYCOPLASMA PNEUMONIAE (PCR) NOT DETECTED (NOT DETECT); PARAINFLUENZA VIRUS 1 (PCR) NOT DETECTED (NOT DETECT); PARAINFLUENZA VIRUS 2 (PCR) NOT DETECTED (NOT DETECT); PARAINFLUENZA VIRUS 3 (PCR) NOT DETECTED (NOT DETECT); PARAINFLUENZA VIRUS 4 (PCR) NOT DETECTED (NOT DETECT); RESPIRATORY SYNCYTIAL V (PCR) NOT DETECTED (NOT DETECT); SARS_COV_2 (PCR) NOT DETECTED (NOT DETECT)
[2022-02-01 00:34] LABS: CORONAVIRUS 229E (PCR) DETECTED (NOT DETECT)
[2022-02-01 02:17] VITALS: BMI 28.8
--- NOTE | 2022-02-01 02:20 | DI ---
EXAM: AP chest. HISTORY: Chest pain. FINDINGS: The bones are unremarkable. The cardiac silhouette and pulmonary vasculature are within normal limit s. The costophrenic angles are clear. No infiltrate or consolidation. Impression: No acute cardiopulmonary disease.
[2022-02-01] MEDS ORDERED: NORCO 5-325 PO PRN (02:32)
[2022-02-01 06:30] LABS: BASOPHILS % (AUTO) 0.5 % (0.0-3.0); EOSINOPHILS # (AUTO) 0.1 K/ul (0.0-0.7); EOSINOPHILS % (AUTO) 2.1 % (0.0-7.0); HEMATOCRIT 31.6 % (37.0-47.0); HEMOGLOBIN 10.9 g/dl (12.0-16.0); IMMATURE GRANULOCYTE % (AUTO) 0.3 % (0.0-5.0); LYMPHOCYTES # (AUTO) 2.1 K/uL (0.60-3.4); LYMPHOCYTES % (AUTO) 31.8 (10.0-50.0); MEAN CORPUSCULAR HEMOGLOBIN 30.3 pg (27.0-31.0); MEAN CORPUSCULAR HGB CONC 34.5 (31.8-35.4); MEAN CORPUSCULAR VOLUME 87.8 fl (81.0-99.0); MONOCYTES # (AUTO) 0.4 K/uL (0.4-2.0); MONOCYTES % (AUTO) 6.7 (0-10); NEUTROPHILS # (AUTO) 3.9 K/ul (2.0-6.9); NEUTROPHILS % (AUTO) 58.6 % (42.2-75.2); PLATELET COUNT 105 10^3/uL (140-440); RDW COEFFICIENT OF VARIATION 14.1 % (11.6-14.8); WHITE BLOOD COUNT 6.57 K/ul (4.6-10.2)
[2022-02-01] MEDS ORDERED: SYNTHROID PO SCH ×2 (06:30→09:00)
[2022-02-01 06:46] LABS: BLOOD UREA NITROGEN 48.9 mg/dL (7-17); CALCIUM 8.64 mg/dL (8.4-10.2); CREATININE 0.97 mg/dL (0.60-1.30); GLUCOSE 162.4 mg/dL (74-106); POTASSIUM 4.79 mmol/L (3.5-5.1); SODIUM 135.9 mmol/L (134.5-145)
[2022-02-01 06:58] LABS: TROPONIN I 0.113 ng/ml (0.0000-0.120)
[2022-02-01] MEDS ORDERED: GLUCOPHAGE PO SCH (08:30)
[2022-02-01] MEDS: PLAVIX PO SCH ×2 (08:55→09:00)
[2022-02-01] MEDS ORDERED: COZAAR PO SCH (09:00)
[2022-02-01] MEDS ORDERED: ZOLOFT PO SCH (09:00)
[2022-02-01] MEDS ORDERED: NEURONTIN PO SCH (09:00)
[2022-02-01] MEDS ORDERED: LANTUS SUBCUT SCH (09:00)
[2022-02-01] MEDS ORDERED: SINGULAIR PO SCH (09:00)
[2022-02-01] MEDS ORDERED: FLEXERIL PO SCH (09:00)
[2022-02-01] MEDS ORDERED: PHENERGAN TAB PO SCH (09:00)
[2022-02-01] MEDS ORDERED: LOVENOX SUBCUT SCH (09:00)
[2022-02-01] MEDS ORDERED: LIPITOR PO SCH (09:00)
[2022-02-01] MEDS ORDERED: BUMEX PO SCH (09:00)
[2022-02-01 10:24] VITALS: BP 139/68; TEMP 97.2
[2022-02-02] MEDS ORDERED: KAYEXALATE SUSP PO SCH (09:00)
--- NOTE | 2022-02-02 09:25 | PCM.DC ---
Final Diagnosis: Hyperkalemia - resolved. Admit 01/31 and discharge 02/01/22. Physical Exam Appearance: Well-appearing Ill-appearing: None Pain Distress: None Eyes: EDUARDO ENT: Oropharynx normal Neck: Supple Respiratory: Airway patent, Breath sounds clear and Breath sounds equal Cardiovascular: RRR and Pulses normal GI/: Soft and Nontender Musculoskeletal: Normal strength and ROM intact Skin: Warm and Dry Neurological: Sensation intact and Motor intact Psychiatric: Affect appropriate and Mood appropriate (1) Hyperkalemia: Status: Acute Code(s): E87.5 - Hyperkalemia SNOMED Code(s): 04502291 Reason for Hospitalization: Potassium was in upper 5 range in ED, source unclear. Placed in obs for kayexelate tx and recheck. Prognosis/Condition at Discharge: Good, stable/ Medications at Discharge: Ambulatory Orders Medication Instructions Recorded albuterol sulfate 90 mcg/actuation 2 puff INHALATION Q6H PRN 11/18/13 aerosol inhaler (ProAir HFA) cyclobenzaprine 10 mg tablet 10 mg PO QID 11/18/13 gabapentin 300 mg capsule 600 mg PO BID 11/10/15 albuterol sulfate 1 vial NEB RTQ4H PRN 04/22/16 insulin glargine 100 unit/mL (3 50 unit SUBCUT DAILY 09/13/19 mL) subcutaneous pen (Basaglar KwikPen U-100 Insulin) sertraline 100 mg tablet (Zoloft) 150 mg PO BEDTIME 10/12/20 atorvastatin 10 mg tablet 10 mg PO DAILY 11/07/21 bumetanide 1 mg tablet 1 mg PO DAILY 11/07/21 clopidogrel 75 mg tablet 75 mg PO DAILY 11/07/21 insulin lispro 100 unit/mL 45 unit SUBCUT DIRECTED 11/07/21 subcutaneous pen (Admelog SoloStar U-100 Insulin lispro) levothyroxine 75 mcg tablet 75 mcg PO DAILY 11/07/21 losartan 50 mg tablet 50 mg PO BEDTIME 11/07/21 metformin 1,000 mg tablet 1,000 mg PO BID 11/07/21 montelukast 10 mg tablet 10 mg PO BEDTIME 11/07/21 ondansetron 4 mg disintegrating 4 mg PO DAILY PRN 11/07/21 tablet promethazine 25 mg tablet 25 mg PO BEDTIME 12/22/21 hydrocodone 5 mg-acetaminophen 325 1 tab PO BID PRN 02/01/22 mg tablet Lab/Diagnostics: Laboratory Tests 01/31/22 01/31/22 01/31/22 21:23 21:23 21:23 WBC 6.39 RBC 3.78 L Hgb 11.3 L Hct 33.1 L MCV 87.6 MCH 29.9 MCHC 34.1 RDW Coeff of Nae 14.0 Plt Count 103 L Immature Gran % (Auto) 0.3 Neut % (Auto) 61.9 Lymph % (Auto) 28.3 [place] % (Auto) 7.4 Eos % (Auto) 1.6 Baso % (Auto) 0.5 Neut # (Auto) 4.0 Lymph # (Auto) 1.8 Marion # (Auto) 0.5 Eos # (Auto) 0.1 Baso # (Auto) 0.0 Immature Gran # (Auto) 0.0 Sodium 135.1 Potassium 5.98 H Chloride 104.1 Carbon Dioxide 26.3 Anion Gap 10.68 BUN 57.4 H Creatinine 1.05 Estimated GFR (MDRD) 56.00 BUN/Creatinine Ratio 54.66 Glucose 264.8 H Calcium 8.86 Magnesium 1.93 Total Bilirubin 0.40 AST 47.4 H ALT 41.4 H Alkaline Phosphatase 293.4 H Total Creatine Kinase 46.9 Troponin I 0.140 H NT-Pro-B Natriuret Pep Total Protein 7.84 Albumin 3.92 Globulin 3.92 Albumin/Globulin Ratio 1.00 Adenovirus (PCR) B. pertussis DNA (PCR) B.parapertussis DNA PCR C. pneumoniae DNA (PCR) Coronavirus OC43 (PCR) Coronavirus HKU1 (PCR) Coronavirus 229E (PCR) Coronavirus NL63 (PCR) Human Metapneumovir PCR Influenza Type A (PCR) Influenza B (RT-PCR) M. pneumoniae (PCR) Parainfluenza 1 (PCR) Parainfluenza 2 (PCR) Parainfluenza 3 (PCR) Parainfluenza 4 (PCR) RSV (PCR) Entero/Rhino (PCR) SARS-CoV-2 (PCR) 01/31/22 01/31/22 01/31/22 22:00 23:26 23:26 WBC RBC Hgb Hct MCV MCH MCHC RDW Coeff of Nae Plt Count Immature Gran % (Auto) Neut % (Auto) Lymph % (Auto) [place] % (Auto) Eos % (Auto) Baso % (Auto) Neut # (Auto) Lymph # (Auto) [place] # (Auto) Eos # (Auto) Baso # (Auto) Immature Gran # (Auto) Sodium Potassium 5.36 H Chloride Carbon Dioxide Anion Gap BUN Creatinine Estimated GFR (MDRD) BUN/Creatinine Ratio Glucose Calcium Magnesium Total Bilirubin AST ALT Alkaline Phosphatase Total Creatine Kinase Troponin I 0.146 H NT-Pro-B Natriuret Pep 2330.000 H Total Protein Albumin Globulin Albumin/Globulin Ratio Adenovirus (PCR) Not detected B. pertussis DNA (PCR) Not detected B.parapertussis DNA PCR Not detected C. pneumoniae DNA (PCR) Not detected Coronavirus OC43 (PCR) Not detected Coronavirus HKU1 (PCR) Not detected Coronavirus 229E (PCR) Detected H Coronavirus NL63 (PCR) Not detected Human Metapneumovir PCR Not detected Influenza Type A (PCR) Not detected Influenza B (RT-PCR) Not detected M. pneumoniae (PCR) Not detected Parainfluenza 1 (PCR) Not detected Parainfluenza 2 (PCR) Not detected Parainfluenza 3 (PCR) Not detected Parainfluenza 4 (PCR) Not detected RSV (PCR) Not detected Entero/Rhino (PCR) Not detected SARS-CoV-2 (PCR) Not detected 02/01/22 02/01/22 02/01/22 06:25 06:25 06:25 WBC 6.57 RBC 3.60 L Hgb 10.9 L Hct 31.6 L MCV 87.8 MCH 30.3 MCHC 34.5 RDW Coeff of Nae 14.1 Plt Count 105 L Immature Gran % (Auto) 0.3 Neut % (Auto) 58.6 Lymph % (Auto) 31.8 Marion % (Auto) 6.7 Eos % (Auto) 2.1 Baso % (Auto) 0.5 Neut # (Auto) 3.9 Lymph # (Auto) 2.1 Marion # (Auto) 0.4 Eos # (Auto) 0.1 Baso # (Auto) 0.0 Immature Gran # (Auto) 0.0 Sodium 135.9 Potassium 4.79 Chloride 108.0 H Carbon Dioxide 24.0 Anion Gap 8.69 BUN 48.9 H Creatinine 0.97 Estimated GFR (MDRD) 62.00 BUN/Creatinine Ratio 50.41 Glucose 162.4 H D Calcium 8.64 Magnesium Total Bilirubin AST ALT Alkaline Phosphatase Total Creatine Kinase 45.0 Troponin I 0.113 NT-Pro-B Natriuret Pep Total Protein Albumin Globulin Albumin/Globulin Ratio Adenovirus (PCR) B. pertussis DNA (PCR) B.parapertussis DNA PCR C. pneumoniae DNA (PCR) Coronavirus OC43 (PCR) Coronavirus HKU1 (PCR) Coronavirus 229E (PCR) Coronavirus NL63 (PCR) Human Metapneumovir PCR Influenza Type A (PCR) Influenza B (RT-PCR) M. pneumoniae (PCR) Parainfluenza 1 (PCR) Parainfluenza 2 (PCR) Parainfluenza 3 (PCR) Parainfluenza 4 (PCR) RSV (PCR) Entero/Rhino (PCR) SARS-CoV-2 (PCR) Follow-ups: PCP this week. Discharge Disposition: Home Hospital Course: Tx with 2 doses of kayexelate, K down to 4.7, OK for d/c, Discharge done with a [id number] exam, total duration of 30 minutes for discharge. Plan: Home, recheck with PCP.
== END 2022-02-01 12:30 | disposition home or self-care (01) | DRG 641 ==
LOC: ED 21:08 → MEDSURG A 02-01 00:39
PROVIDERS: ADMIT Internal Medicine Geriatric Medicine; ATTEND Emergency Medicine
DX: E03.9 Hypothyroidism, unspecified; I10 Essential (primary) hypertension; E87.5 Hyperkalemia; Z20.822 Contact with and (suspected) exposure to COVID-19; E11.65 Type 2 diabetes mellitus with hyperglycemia; E78.5 Hyperlipidemia, unspecified; Z79.899 Other long term (current) drug therapy; I50.1 Left ventricular failure, unspecified; J45.909 Unspecified asthma, uncomplicated; F17.210 Nicotine dependence, cigarettes, uncomplicated; R07.9 Chest pain, unspecified; Z79.4 Long term (current) use of insulin

== ENCOUNTER 2023-04-21 12:45 | Inpatient (IN) ==
[2023-04-21] MEDS ORDERED: IMITREX PO ONE (14:37)
[2023-04-21 14:44] LABS: BILIRUBIN,URINE Negative (NEGATIVE); CLARITY,URINE Cloudy (CLEAR); COLOR,URINE Yellow (YELLOW); GLUCOSE, URINE (UA) 2+ (NEGATIVE); KETONES,URINE Negative (NEGATIVE); LEUKOCYTE ESTERASE ,URINE Trace (NEGATIVE); NITRITE,URINE Negative (NEGATIVE); PROTEIN,URINE 3+ (NEGATIVE); URINE, BLOOD 1+ (NEGATIVE); UROBILINOGEN,URINE 0.2 (0.2)
--- NOTE | 2023-04-21 14:45 | ED.PDOC ---
General ED Provider: Dr. LEIGH ESPANA MD Chief Complaint: Headache Stated Complaint: headache Time Seen by Provider: 04/21/23 13:00 Information Source: Patient Primary Care Provider: QUENTIN LEONARD Nursing and Triage Documentation Reviewed and Agree: Yes Does patient meet sepsis criteria?: No System Inflammatory Response Syndrome: Not Applicable Sepsis Protocol: For patient's 13 years and over: Temp is 96.8 and below OR 101 and greater Pulse >90 BPM Resp >20/minute Acutely Altered Mental Status Are patient's symptoms suggestive of a new infection, such as: -Pneumonia -Skin, Soft Tissue -Endocarditis -UTI -Bone, Joint Infection -Implantable Device -Acute Abdominal Infection -Wound Infection -Meningitis -Blood Stream Catheter Infection -Unknown Neurological Complaint Exam Headache Complaint/Exam Onset: Gradual Duration: few months Symptoms Are: Still present Timing: Constant Worst Headache Ever: No Current Severity: Moderate Location: Diffuse Character: Reports Dull and Throbbing Associated Signs and Symptoms: Reports Dizziness and Vomiting Meningeal Signs Positive: No Review of Systems Review Of Systems Constitutional: Reports No symptoms Eyes: Reports Photophobia Ears, Nose, Mouth, Throat: Reports No symptoms Respiratory: Reports No symptoms, Cough and Orthopnea Cardiac: Reports No symptoms GI: Reports No symptoms and Abdominal pain : Reports Frequency and Flank pain Skin: Reports No symptoms and Bruising Neurological: Reports Headache Endocrine: Reports No symptoms and Excessive sweating Hematologic/Lymphatic: Reports No symptoms All Other Systems: Reviewed and Negative [facility] Medical History (Updated 04/21/23 @ 20:07 by IVANIA HERNÁNDEZ RN) Arthritis M19.90 - Unspecified osteoarthritis, unspecified site (ICD-10) Asthma J45.909 - Unspecified asthma, uncomplicated (ICD-10) Bipolar 1 disorder F31.9 - Bipolar disorder, unspecified (ICD-10) CHF (congestive heart failure) I50.9 - Heart failure, unspecified (ICD-10) COPD (chronic obstructive pulmonary disease) J44.9 - Chronic obstructive pulmonary disease, unspecified (ICD-10) Diabetes mellitus E11.9 - Type 2 diabetes mellitus without complications (ICD-10) Emphysema of lung J43.9 - Emphysema, unspecified (ICD-10) HTN (hypertension) I10 - Essential (primary) hypertension (ICD-10) Hyperlipidemia E78.5 - Hyperlipidemia, unspecified (ICD-10) Hypothyroidism E03.9 - Hypothyroidism, unspecified (ICD-10) Kidney stones, calcium oxalate N20.0 - Calculus of kidney (ICD-10) Migraines G43.909 - Migraine, unspecified, not intractable, without status migrainosus (ICD-10) Neuropathy G62.9 - Polyneuropathy, unspecified (ICD-10) Family History FATHER Hypertension Diabetes Mother Hypertension Diabetes Thyroid cancer PATERNAL GRANDMOTHER Stomach cancer SISTER Uterine cancer Other No pertinent family history Social History (Updated 04/21/23 @ 20:08 by IVANIA HERNÁNDEZ RN) Smoking and tobacco status: Former smoker Tobacco: How many years used: 33 (quit 3 years ago) How long ago did patient quit smoking: Dec 2020 Surgical History History of cholecystectomy Z90.49 - Acquired absence of other specified parts of digestive tract (ICD- 10) History of removal of cyst Z98.890 - Other specified postprocedural states (ICD-10) Previous section Z98.891 - History of uterine scar from previous surgery (ICD-10) Female Reproductive History Menstrual Hx Hysterectomy: Yes Hx Tubal Ligation: No Physical Exam Physical Exam Appearance: Reports Well-appearing Ill-appearing: None Pain Distress: Mild Eyes: Reports EDUARDO and EOMI ENT: Reports Ears normal and Nose normal Neck: Supple Respiratory: Reports Airway patent, Breath sounds clear and Breath sounds equal Cardiovascular: Reports RRR, Pulses normal, No rub and No murmur GI/: Reports Soft, Nontender and No masses Musculoskeletal: Reports Normal strength and ROM intact Skin: Reports Warm and Normal color Neurological: Reports Sensation intact and Motor intact Psychiatric: Reports Affect appropriate Critical Care Note Critical Care Note Total Critical Care Time (mins): 0 Course Course 04/22/23 05:09 04/22/23 05:09 Orders, Labs, Meds: Lab Review 04/21/23 04/21/23 14:25 14:47 WBC 6.45 RBC 3.48 L Hgb 10.3 L Hct 29.1 L MCV 83.6 MCH 29.6 MCHC 35.4 RDW Coeff of Nae 13.4 Plt Count 139 L Immature Gran % (Auto) 0.6 Neut % (Auto) 63.9 Lymph % (Auto) 27.4 [place] % (Auto) 5.9 Eos % (Auto) 1.7 Baso % (Auto) 0.5 Neut # (Auto) 4.1 Lymph # (Auto) 1.8 [place] # (Auto) 0.4 Eos # (Auto) 0.1 Baso # (Auto) 0.0 Immature Gran # (Auto) 0.0 Sodium 125.0 L Potassium 4.53 Chloride 90.6 L Carbon Dioxide 25.7 Anion Gap 13.23 BUN 54.3 H Creatinine 2.01 H Estimated GFR (MDRD) 26.00 BUN/Creatinine Ratio 27.01 Glucose 721.9 H* Calcium 7.74 L Total Bilirubin 0.31 AST 28.3 ALT 22.8 Alkaline Phosphatase 321.0 H Total Protein 7.09 Albumin 3.35 L Globulin 3.74 Albumin/Globulin Ratio 0.89 Urine Color Yellow Urine Clarity Cloudy Urine pH 5.0 Ur Specific [place] 1.020 Urine Protein 3+ H Urine Glucose (UA) 2+ H Urine Ketones Negative Urine Blood 1+ H Urine Nitrite Negative Urine Bilirubin Negative Urine Urobilinogen 0.2 Ur Leukocyte Esterase Trace H Urine Microscopic RBC 5-10 Urine Microscopic WBC 10-20 Ur Squamous Epith Cells 5-10 Amorphous Sediment Trace Urine Bacteria 1+ Orders Category Date Time Status ADMIT PATIENT INPATIENT .TO [facility] (MONITORED BED) ADMISSION 04/21/23 16:17 Active ACTIVITY .Early Mobilization for VTE Prevention CARE 04/21/23 16:17 Active BLOOD GLUCOSE MONITORING (MED/SURG) Q1HR CARE 04/21/23 16:17 Active INTAKE & OUTPUT Q8HR CARE 04/21/23 16:18 Active IP: INSERT SALINE LOCK ONCE CARE 04/21/23 16:18 Active TELEMETRY MONITORING TELE CARE 04/21/23 16:18 Active VITAL SIGNS Q2HR CARE 04/21/23 16:18 Active CBC W/ AUTO DIFF DAILY@0600 LAB 04/22/23 05:09 Completed CBC W/ AUTO DIFF DAILY@0600 LAB 04/23/23 06:00 Ordered CBC W/ AUTO DIFF Stat LAB 04/21/23 14:47 Completed CMP [COMPREHENSIVE METABOLIC PANEL] Stat LAB 04/21/23 14:47 Completed COMPREHENSIVE METABOLIC PANEL DAILY@0600 LAB 04/22/23 05:09 Completed COMPREHENSIVE METABOLIC PANEL DAILY@0600 LAB 04/23/23 06:00 Ordered URINALYSIS C & S IF INDICATED Stat LAB 04/21/23 14:25 Completed URINE CULTURE Stat LAB 04/21/23 14:50 Received Ceftriaxone/D5w 1 gm Premix [Rocephin 1 gm/50 ml D5w] Meds 04/21/23 16:04 Discontinued 1 gm in 50 ml IV ONCE Insulin Regular, Human [Humulin R] Meds 04/21/23 15:31 Discontinued 20 unit SUBCUT ONCE ONE Sodium Chloride 0.9% [Sodium Chloride] 1,000 ml Meds 04/21/23 15:35 Discontinued IV BOLUS Sumatriptan Succinate [Imitrex] Meds 04/21/23 14:37 Discontinued 100 mg PO ONCE ONE RESUSCITATION STATUS Routine OTHERS 04/21/23 16:[address] HEAD W/O CONTRAST Stat RADS 04/21/23 14:37 Completed Medications Generic Name Dose Route Start Last Admin Trade Name Freq PRN Reason Stop Dose Admin Acetaminophen 650 mg 04/21/23 16:25 04/22/23 05:54 Acetaminophen 650 Mg/20.3 Ml Cup PO 650 mg Q6H PRN Administration Mild Pain Albuterol Sulfate 2 puff 04/21/23 19:40 Albuterol Sulfate 8 Gm Inhaler IH Q6H PRN Allergy Symptoms Atorvastatin Calcium 10 mg 04/22/23 09:00 Atorvastatin Calcium 10 Mg Tablet PO DAILY PRATEEK Clonazepam 0.5 mg 04/21/23 21:00 04/21/23 21:51 Clonazepam 0.5 Mg Tablet PO 0.5 mg BID PRATEEK Administration Cyclobenzaprine HCl 10 mg 04/21/23 21:00 04/21/23 21:51 Cyclobenzaprine Hcl 10 Mg Tablet PO 10 mg QID PRATEEK Administration Famotidine 20 mg 04/21/23 21:00 04/21/23 21:52 Famotidine 20 Mg Tablet PO 20 mg BEDTIME PRATEEK Administration Gabapentin 900 mg 04/21/23 21:00 04/21/23 21:52 Gabapentin 300 Mg Capsule PO 900 mg TID PRATEEK Administration CEFTRIAXONE/D5W 1 GM PREMIX 1 gm in 50 mls @ 75 mls/hr 04/22/23 09:00 Rocephin 1 Gm/50 Ml D5w IV 04/25/23 08:59 DAILY PRATEEK INSULIN REGULAR IN 0.9 % NACL 100 unit in 100 mls @ 10.138 mls/hr 04/21/23 16:30 04/21/23 21:15 Myxredlin 100 Unit/100 Ml Bag IV 0 unit/kg/hr TITRATION PRATEEK 0 mls/hr Titration Protocol 0.1 UNIT/KG/HR Levothyroxine Sodium 75 mcg 04/22/23 06:30 04/22/23 05:53 Levothyroxine Sodium 75 Mcg Tablet PO 75 mcg 0630 PRATEEK Administration Montelukast Sodium 10 mg 04/21/23 21:00 04/21/23 21:52 Montelukast Sodium 10 Mg Tablet PO 10 mg BEDTIME PRATEEK Administration Ondansetron HCl 4 mg 04/21/23 16:25 Ondansetron Hcl/Pf 4 Mg/2 Ml Sdv IVP Q6H PRN Nausea / Vomiting Sertraline HCl 150 mg 04/21/23 21:00 04/21/23 21:52 Sertraline Hcl 50 Mg Tablet PO 150 mg BEDTIME PRATEEK Administration Sodium Chloride 1 syr 04/22/23 05:00 04/22/23 05:53 0.9% Sodium Chloride 10 Ml Disp.Syrin IVF 1 syr Q8HR PRATEEK Administration Discontinued Medications Generic Name Dose Route Start Last Admin Trade Name Freq PRN Reason Stop Dose Admin Diphenhydramine HCl 25 mg 04/21/23 21:31 04/21/23 21:51 Diphenhydramine Inj 50 Mg/Ml Vial IVP 04/21/23 21:32 25 mg ONCE ONE Administration Famotidine 20 mg 04/21/23 17:37 04/21/23 21:39 Famotidine Inj 20 Mg/2 Ml Vial IVP 04/21/23 17:38 Not Given ONCE STA Sodium Chloride 1,000 mls @ 1,000 mls/hr 04/21/23 15:35 04/21/23 16:01 Sodium Chloride IV 04/21/23 16:34 1,000 mls/hr BOLUS STA Administration CEFTRIAXONE/D5W 1 GM PREMIX 1 gm in 50 mls @ 75 mls/hr 04/21/23 16:04 04/21/23 16:20 Rocephin 1 Gm/50 Ml D5w IV 04/21/23 16:43 75 mls/hr ONCE ONE Administration Diphenhydramine HCl 25 mg/ 100.5 mls @ 100 mls/hr 04/21/23 17:37 04/21/23 21:34 Sodium Chloride IV 04/21/23 18:37 Not Given ONCE STA Diphenhydramine HCl 25 mg/ 100.5 mls @ 100 mls/hr 04/21/23 19:47 04/21/23 21:34 Sodium Chloride IV 04/21/23 20:47 Not Given ONCE ONE Potassium Chloride/Dextrose/Sod Cl 1,000 mls @ 250 mls/hr 04/21/23 19:49 04/21/23 19:56 D5%-Ns-Kcl 20 Meq/L Iv Karena IV 04/21/23 23:48 250 mls/hr .Q4H STA Administration Insulin Glargine 30 unit 04/21/23 21:12 04/21/23 22:39 Insulin Glargine,Hum.Rec.Anlog 100 Units/Ml SUBCUT 04/21/23 21:13 30 unit ONCE STA Administration Insulin Human Regular 20 unit 04/21/23 15:31 04/21/23 16:01 Insulin Regular, Human 100 Unit/Ml (3ml) Vial SUBCUT 04/21/23 15:32 20 unit ONCE ONE Administration Ketorolac Tromethamine 15 mg 04/21/23 17:37 04/21/23 21:51 Ketorolac Tromethamine 15 Mg/Ml Vial IVP 04/21/23 17:38 15 mg ONCE STA Administration Sumatriptan Succinate 100 mg 04/21/23 14:37 04/21/23 15:24 Sumatriptan Succinate 25 Mg Tablet PO 04/21/23 14:38 100 mg ONCE ONE Administration Vital Signs: Temp Pulse Resp BP Pulse Ox 04/21/23 12:54 97.7 F 88 14 113/74 93 L patient c/o headache for few months, her PCP diagnosed her with migraine , prescriped medication wasn't covered by insurance so she wasn't able to get it. patient also noticed nausea, sensetivity to light. and dizziness. she is also c/o flank pain and frequency. patient was found to have UTI Rocephin 1 g IV was given, she also had blood sugar of 721. She was given 20 units of SC regular insulin, patient also had acute on chronic renal failure, she was given 1 L NS bolus. Case discussed with hospitalist Spencer Huggins regarding admitting patient for insulin drip for HHS and IV antibiotics for UTI, she accepted the patient to be admitted to her service. Discharge Plan Discharge Patient Disposition: ADMITTED INPATIENT Discharge Problem: UTI (urinary tract infection), Hyperosmolar hyperglycemic state (HHS) Did you review [place] [employer] for ALL controlled substances?: Not Applicable ED Provider: LEIGH ESPANA Condition: Poor Physician Progress Note: []
[2023-04-21 14:51] LABS: AMORPHOUS SEDIMENT,UR TRACE (NOT PRESENT); BACTERIA,URINE 1+ (NOT PRESENT)
[2023-04-21 14:52] LABS: BASOPHILS % (AUTO) 0.5 % (0.0-3.0); EOSINOPHILS # (AUTO) 0.1 K/ul (0.0-0.7); EOSINOPHILS % (AUTO) 1.7 % (0.0-7.0); HEMATOCRIT 29.1 % (37.0-47.0); HEMOGLOBIN 10.3 g/dl (12.0-16.0); IMMATURE GRANULOCYTE % (AUTO) 0.6 % (0.0-5.0); LYMPHOCYTES # (AUTO) 1.8 K/uL (0.60-3.4); LYMPHOCYTES % (AUTO) 27.4 (10.0-50.0); MEAN CORPUSCULAR HEMOGLOBIN 29.6 pg (27.0-31.0); MEAN CORPUSCULAR HGB CONC 35.4 (31.8-35.4); MEAN CORPUSCULAR VOLUME 83.6 fl (81.0-99.0); MONOCYTES # (AUTO) 0.4 K/uL (0.4-2.0); MONOCYTES % (AUTO) 5.9 (0-10); NEUTROPHILS # (AUTO) 4.1 K/ul (2.0-6.9); NEUTROPHILS % (AUTO) 63.9 % (42.2-75.2); PLATELET COUNT 139 10^3/uL (140-440); RDW COEFFICIENT OF VARIATION 13.4 % (11.6-14.8); RED BLOOD COUNT 3.48 10^6/ul (4.20-5.40); WHITE BLOOD COUNT 6.45 K/ul (4.6-10.2)
[2023-04-21 15:04] LABS: ALANINE AMINOTRANSFERASE 22.8 U/L (0-35); ALBUMIN 3.35 g/dL (3.5-5.0); ASPARTATE AMINO TRANSFERASE 28.3 U/L (14-36); BILIRUBIN,TOTAL 0.31 mg/dL (0.2-1.3); BLOOD UREA NITROGEN 54.3 mg/dL (7-17); CALCIUM 7.74 mg/dL (8.4-10.2); CARBON DIOXIDE 25.7 mmol/L (22-30.0); CHLORIDE 90.6 mmol/L (98-107); CREATININE 2.01 mg/dL (0.60-1.30); POTASSIUM 4.53 mmol/L (3.5-5.1); TOTAL PROTEIN 7.09 g/dL (6.3-8.2)
--- NOTE | 2023-04-21 15:13 | CT ---
EXAMINATION: HEAD CT WITHOUT CONTRAST HISTORY: Headache TECHNIQUE: Noncontrast CT of the brain was performed with images acquired from skull base to vertex. 2-D coronal and sagittal reformatted images were obtained from the axial source images. CT Dose Reduction Techniques Performed: Yes. Contrast: None. COMPARISON: 02/22/2022 FINDINGS: Intraparenchymal hemorrhage: None. Parenchyma: Normal olguin-white differentiation. No mass effect or midline shift. White matter is withi n normal limits for age. Ventricles/Extra-axial spaces and basal cisterns: No hydrocephalus or extraaxial fluid collections. Paranasal sinuses and mastoid air cells: Visualized portions of paranasal sinuses are clear. Mastoid air cells are clear. Orbits: Normal visualized portions. Sella/Skull Base: Normal. Bones: Calvarium is normal. Scalp/Soft Tissues: Scalp and visualized soft tissues are normal. IMPRESSION: 1. No intracranial hemorrhage. 2. Unremarkable noncontrast CT scan of the brain. All CT scans are performed using dose optimization techniques as appropriate to the performed exam an d include at least one of the following: Automated exposure control, adjustment of the mA and/or kV according t o size, and the use of iterative reconstruction technique.
[2023-04-21 15:22] LABS: GLUCOSE 721.9 mg/dL (74-106)
[2023-04-21] MEDS ORDERED: HUMULIN R SUBCUT ONE (15:31)
[2023-04-21] MEDS ORDERED: SODIUM CHLORIDE 1,000 ML IV STA (15:35)
[2023-04-21] MEDS ORDERED: ROCEPHIN 1 GM/50 ML D5W 1 GM/50 ML BAG IV ONE (16:04)
[2023-04-21] MEDS ORDERED: TYLENOL LIQUID 650 MG/20.3 ML PO PRN (16:25)
[2023-04-21] MEDS ORDERED: ZOFRAN 4 MG/2 ML IVP PRN (16:25)
[2023-04-21] MEDS ORDERED: SODIUM CHLORIDE 1,000 ML IV SCH (16:30)
[2023-04-21] MEDS ORDERED: MYXREDLIN 100 UNIT/100 ML BAG 100 UNIT/100 ML PLAST..BAG IV SCH (16:30)
--- NOTE | 2023-04-21 17:34 | PCM ---
Date of Service Date Seen by Provider: 04/21/23 Time Seen by Provider: 17:10 Admit Day/Time Admission Date: 04/21/23 Reason for Admission Chief Complaint: UTI, [facility] Hospital Provider Hospital Provider: LUZ GUZMAN, [facility] [place] Primary Care Physician Primary Care Physician: QUENTIN LEONARD History of Present Illness History of Present Illness: 47-year-old female presented to the ER with complaints of a headache. Patient states she has had a headache for over the past month. Has taken multiple qmtj-guj-twifxxs medications without relief. Also reports high blood sugar. States at home this morning it was running around 300. After dosing herself with insulin her blood sugars continue to rise. On arrival to the ER it was over 700. She was given 20 units of regular insulin in the ER. Blood sugar at this time is showing greater than 500 on glucometer. Patient still has complaints of a headache after receiving Imitrex. Patient also reports complaints of flank pain bilaterally. Patient denies any fever, chills, chest pain, shortness of breath, nausea, vomiting or diarrhea. Denies any urinary symptoms. Case Discussed With Case Discussed With: Patient's case was discussed with the ER Physicians, Dr. Gonzalez [facility] Medical History Arthritis M19.90 - Unspecified osteoarthritis, unspecified site (ICD-10) Asthma J45.909 - Unspecified asthma, uncomplicated (ICD-10) Bipolar 1 disorder F31.9 - Bipolar disorder, unspecified (ICD-10) CHF (congestive heart failure) I50.9 - Heart failure, unspecified (ICD-10) COPD (chronic obstructive pulmonary disease) J44.9 - Chronic obstructive pulmonary disease, unspecified (ICD-10) Diabetes mellitus E11.9 - Type 2 diabetes mellitus without complications (ICD-10) Emphysema of lung J43.9 - Emphysema, unspecified (ICD-10) HTN (hypertension) I10 - Essential (primary) hypertension (ICD-10) Hyperlipidemia E78.5 - Hyperlipidemia, unspecified (ICD-10) Hypothyroidism E03.9 - Hypothyroidism, unspecified (ICD-10) Kidney stones, calcium oxalate N20.0 - Calculus of kidney (ICD-10) Migraines G43.909 - Migraine, unspecified, not intractable, without status migrainosus (ICD-10) Surgical History History of cholecystectomy Z90.49 - Acquired absence of other specified parts of digestive tract (ICD- 10) History of removal of cyst Z98.890 - Other specified postprocedural states (ICD-10) Previous section Z98.891 - History of uterine scar from previous surgery (ICD-10) Family History FATHER Hypertension Diabetes Mother Hypertension Diabetes Thyroid cancer PATERNAL GRANDMOTHER Stomach cancer SISTER Uterine cancer Other No pertinent family history Social History Smoking and tobacco status: Former smoker Tobacco: How many years used: 33 How long ago did patient quit smoking: Dec 2020 Allergies Allergies Allergy/AdvReac Type Severity Reaction Status Date / Time amoxicillin [Amoxicillin] AdvReac Difficulty Verified 04/21/23 14:18 Breathing cefaclor [From Ceclor] AdvReac HEADACHE Verified 04/21/23 14:18 cephalexin monohydrate AdvReac Difficulty Verified 04/21/23 14:18 [From Keflex] Breathing ciprofloxacin [From Cipro] AdvReac MIGRAINE Verified 04/21/23 14:18 ciprofloxacin HCl AdvReac MIGRAINE Verified 04/21/23 14:18 [From Cipro] clavulanic acid AdvReac Rash Verified 04/21/23 14:18 [From Augmentin] ketorolac [From Toradol] AdvReac BOTTOMS Verified 04/21/23 14:18 OUT BLOOD PRESSURE Latex, Natural Rubber AdvReac Rash Verified 04/21/23 14:18 meperidine HCl [From Demerol] AdvReac BOTTOMD Verified 04/21/23 14:18 OUT BLOOD PRESSURE Penicillins AdvReac Rash Verified 04/21/23 14:18 sitagliptin [From Januvia] AdvReac Itching Verified 04/21/23 14:18 Sulfa (Sulfonamide AdvReac MIGRAINES Verified 04/21/23 14:18 Antibiotics) Current Medications Home Medications albuterol sulfate 90 mcg/actuation aerosol inhaler (ProAir HFA) 2 puff inhalation Q6H PRN shortness of air 11/18/13 [History Confirmed 04/21/23 Last Taken 09/12/19 19:00] cyclobenzaprine 10 mg tablet 10 mg PO QID 11/18/13 [History Confirmed 04/21/23 Last Taken 01/30/22 20:00] gabapentin 300 mg capsule 600 mg PO BID 11/10/15 [History Confirmed 04/21/23 Last Taken 01/30/22 20:00] insulin glargine 100 unit/mL (3 mL) subcutaneous pen (Basaglar KwikPen U-100 Insulin) 30 unit subcut DAILY 09/13/19 [History Confirmed 04/21/23 Last Taken 01/30/22 08:00] sertraline 100 mg tablet (Zoloft) 150 mg PO BEDTIME 10/12/20 [History Confirmed 04/21/23 Last Taken 01/30/22 20:00] atorvastatin 10 mg tablet 10 mg PO DAILY 11/07/21 [History Confirmed 04/21/23 Last Taken 01/30/22 08:00] bumetanide 1 mg tablet 1 mg PO DAILY PRN FLUID RETENTION 11/07/21 [History Confirmed 04/21/23 Last Taken 01/30/22 08:00] insulin lispro 100 unit/mL subcutaneous pen (Admelog SoloStar U-100 Insulin lispro) 45 unit subcut DAILY 11/07/21 [History Confirmed 04/21/23 Last Taken Unknown] levothyroxine 75 mcg tablet 75 mcg PO DAILY 11/07/21 [History Confirmed 04/21/23 Last Taken 01/30/22 08:00] metformin 1,000 mg tablet 1,000 mg PO BID 11/07/21 [History Confirmed 04/21/23 Last Taken 01/30/22 20:00] montelukast 10 mg tablet 10 mg PO BEDTIME 11/07/21 [History Confirmed 04/21/23 Last Taken 01/30/22 20:00] promethazine 25 mg tablet 25 mg PO BEDTIME 11/07/21 [History Confirmed 04/21/23 Last Taken 01/30/22 20:00] Home Acetaminophen (Acetaminophen 650 Mg/20.3 Ml Cup) 650 mg PO Q6H PRN PRN Reason: Mild Pain CEFTRIAXONE/D5W 1 GM PREMIX (Rocephin 1 Gm/50 Ml D5w) 1 gm in 50 mls @ 75 mls/hr IV DAILY PRATEEK Stop: 04/25/23 08:59 INSULIN REGULAR IN 0.9 % NACL (Myxredlin 100 Unit/100 Ml Bag) 100 unit in 100 mls @ 10.138 mls/hr IV TITRATION PRATEEK; Protocol Last Admin: 04/21/23 16:50 Dose: 0.1 unit/kg/hr, 10.1 mls/hr Sodium Chloride (Sodium Chloride) 1,000 mls @ 250 mls/hr IV .Q4H PRATEEK Ondansetron HCl (Ondansetron Hcl/Pf 4 Mg/2 Ml Sdv) 4 mg IVP Q6H PRN PRN Reason: Nausea / Vomiting Discontinued Medications Sodium Chloride (Sodium Chloride) 1,000 mls @ 1,000 mls/hr IV BOLUS STA Stop: 04/21/23 16:34 Last Admin: 04/21/23 16:01 Dose: 1,000 mls/hr CEFTRIAXONE/D5W 1 GM PREMIX (Rocephin 1 Gm/50 Ml D5w) 1 gm in 50 mls @ 75 mls/hr IV ONCE ONE Stop: 04/21/23 16:43 Last Admin: 04/21/23 16:20 Dose: 75 mls/hr Insulin Human Regular (Insulin Regular, Human 100 Unit/Ml (3ml) Vial) 20 unit SUBCUT ONCE ONE Stop: 04/21/23 15:32 Last Admin: 04/21/23 16:01 Dose: 20 unit Sumatriptan Succinate (Sumatriptan Succinate 25 Mg Tablet) 100 mg PO ONCE ONE Stop: 04/21/23 14:38 Last Admin: 04/21/23 15:24 Dose: 100 mg Review of Systems Constitutional: Reports No symptoms Head: Reports Normocephalic and Atraumatic Eyes: Reports No symptoms Ears: Reports No symptoms Nose: Reports No symptoms Mouth: Reports No symptoms Throat: Reports No symptoms Cardiovascular: Reports No symptoms Respiratory: Reports No symptoms Gastrointestinal: Reports No symptoms Genitourinary: Reports Flank Pain Musculoskeletal: Reports No symptoms Endocrine: Reports No symptoms Hematology: Reports No symptoms Immunology: Reports No symptoms Neurological: Reports Headache Psychiatric: Reports No symptoms Physical examination Most Recent Vital Signs: Most Recent Vital Signs Temperature 97.7 F 04/21/23 12:54 Temperature Source Infrared 04/21/23 12:54 Pulse Rate 88 04/21/23 12:54 Respiratory Rate 14 04/21/23 12:54 Blood Pressure 113/74 04/21/23 12:54 O2 Sat by Pulse Oximetry 93 L 04/21/23 12:54 Height 5 ft 7 in 04/21/23 12:54 Weight 223 lb 8 oz 04/21/23 12:54 Telemetry Heart Rate 65 02/01/22 07:00 Appearance: Positive No Apparent Distress, Alert and Oriented x3, Ill-Appearing and Obese Skin: Positive Warm, Good Turgor and Other (bilateral great toes open and draining, multiple necrotic areas on all toes) HEENT: Positive Normocephalic and PERRLA Neck: Positive Supple and Midline Trachea Chest/Lungs: Positive Symmetrical With Equal Breath Sounds, Clear to Auscultation Bilaterally and Good Air Movement all 4 Lung Welch Heart: Positive RRR and Pulses Normal GI/: Positive Soft, Nontender, Bowel Sounds Normal, No Distention and Other (midline scar on abdomen, small area open without erythema - bloody discharge from scab being torn off) Musculoskeletal: Positive Not Examined Extremities: Positive Intact Peripheral Pulses, Stable Joints Without Laxity and Good ROM in All Joints Neurological: Positive Sensation Intact, Motor intact, Alert, Oriented and Muscle Strength 5/5 in Upper and Lower Extremities Bilaterally Psychiatric: Positive Oriented x4, Appropriate Mood, Appropriate Affect, Intact Memory, Good Short-Term Recall, Good Long-Term Recall, Normal Judgement and Normal Insight Labs This Visit Labs This Visit: Labs This Visit 04/21/23 04/21/23 14:25 14:47 WBC 6.45 RBC 3.48 L Hgb 10.3 L Hct 29.1 L MCV 83.6 MCH 29.6 MCHC 35.4 RDW Coeff of Nae 13.4 Plt Count 139 L Immature Gran % (Auto) 0.6 Neut % (Auto) 63.9 Lymph % (Auto) 27.4 [place] % (Auto) 5.9 Eos % (Auto) 1.7 Baso % (Auto) 0.5 Neut # (Auto) 4.1 Lymph # (Auto) 1.8 [place]od # (Auto) 0.4 Eos # (Auto) 0.1 Baso # (Auto) 0.0 Immature Gran # (Auto) 0.0 Sodium 125.0 L Potassium 4.53 Chloride 90.6 L Carbon Dioxide 25.7 Anion Gap 13.23 BUN 54.3 H Creatinine 2.01 H Estimated GFR (MDRD) 26.00 BUN/Creatinine Ratio 27.01 Glucose 721.9 H* Calcium 7.74 L Total Bilirubin 0.31 AST 28.3 ALT 22.8 Alkaline Phosphatase 321.0 H Total Protein 7.09 Albumin 3.35 L Globulin 3.74 Albumin/Globulin Ratio 0.89 Urine Color Yellow Urine Clarity Cloudy Urine pH 5.0 Ur Specific [place] 1.020 Urine Protein 3+ H Urine Glucose (UA) 2+ H Urine Ketones Negative Urine Blood 1+ H Urine Nitrite Negative Urine Bilirubin Negative Urine Urobilinogen 0.2 Ur Leukocyte Esterase Trace H Urine Microscopic RBC 5-10 Urine Microscopic WBC 10-20 Ur Squamous Epith Cells 5-10 Amorphous Sediment Trace Urine Bacteria 1+ Review Statement Review Statement: I have independently reviewed and interpreted the labs/EKGs/imaging that were ordered by the ER provider. I have reviewed all outside records that are available currently in our EMR including imaging/notes/labs from previous visits. Plan Plan: 1. Hyperglycemia Hyperosmolar State - insulin gtt per protocol, accuchecks Q1H, serial bmp, NPO. NS@250mL/hr 2. SEPIDEH - NS@250mL/hr, avoid nephrotoxins/hypotension, monitor bmp 3. UTI - urine culture pending, rocephin 1G Q24H 4. Diabetes Mellitus, Type 2 - uncontrolled, check hemoglobin A1C, hold oral medications, see #1 for current plan, likely adjustment of home medications on discharge 5. Diabetic Foot Ulcers - receiving antibiotics for UTI, culturing open ulcers, will refer to podiatry on discharge 6. Hypertension - chronic, stable, continue home medications DVT Prophylaxis: Up ad aure Time Spent: Greater than 80 minutes spent with patient, 50% of the time spent with this patient was devoted to counseling and coordination of care. Advanced Care Plannin minutes spent discussing advance care planning. Disposition: Full code Admit to: Med/surg Inpatient Discussed Plan of Care with Dr. Lev Randle. Medications Medication Orders: Medications Ordered Category Date Time Status Acetaminophen [Tylenol Liquid 650 mg/20.3 ml] Meds 04/21/23 16:25 Active 650 mg PO Q6H PRN Ceftriaxone/D5w 1 gm Premix [Rocephin 1 gm/50 ml D5w] Meds 04/22/23 09:00 Active 1 gm in 50 ml IV DAILY Insulin Regular in 0.9 % NaCl [Myxredlin 100 Unit/100 Meds 04/21/23 16:30 Active ml Bag] 100 unit in 100 ml IV TITRATION Ondansetron HCl/Pf [Zofran 4 mg/2 ml] Meds 04/21/23 16:25 Active 4 mg IVP Q6H PRN Sodium Chloride 0.9% [Sodium Chloride] 1,000 ml Meds 04/21/23 16:30 Active IV 250 mls/hr
[2023-04-21] MEDS ORDERED: TORADOL IVP STA (17:37)
[2023-04-21] MEDS ORDERED: PEPCID IVP STA (17:37)
[2023-04-21] MEDS ORDERED: BENADRYL 25 MG in SODIUM CHLORIDE 100ML 100 ML IV STA (17:37)
[2023-04-21 18:03] VITALS: BMI 35.2
[2023-04-21] MEDS ORDERED: VENTOLIN HFA IH PRN (19:40)
[2023-04-21] MEDS ORDERED: BENADRYL 25 MG in SODIUM CHLORIDE 100ML 100 ML IV ONE (19:47)
[2023-04-21] MEDS ORDERED: D5%-NS-KCL 20 MEQ/L IV SOL 1,000 ML IV STA (19:49)
[2023-04-21 20:29] LABS: BLOOD UREA NITROGEN 50.4 mg/dL (7-17); CALCIUM 8.27 mg/dL (8.4-10.2); CARBON DIOXIDE 27.2 mmol/L (22-30.0); CHLORIDE 101.6 mmol/L (98-107); CREATININE 1.91 mg/dL (0.60-1.30); GLUCOSE 113.9 mg/dL (74-106); POTASSIUM 3.23 mmol/L (3.5-5.1); SODIUM 136.1 mmol/L (134.5-145)
[2023-04-21] MEDS ORDERED: ZOLOFT PO SCH (21:00)
[2023-04-21] MEDS ORDERED: SINGULAIR PO SCH (21:00)
[2023-04-21] MEDS ORDERED: LANTUS SUBCUT STA (21:12)
[2023-04-21] MEDS: PEPCID PO SCH ×2 (21:28→21:52)
[2023-04-21] MEDS ORDERED: BENADRYL IVP ONE (21:31)
[2023-04-21] MEDS ORDERED: TORADOL ONE (21:46)
[2023-04-21] MEDS: FLEXERIL PO SCH (21:51)
[2023-04-21] MEDS: KLONOPIN PO SCH (21:51)
[2023-04-21] MEDS: NEURONTIN PO SCH (21:52)
[2023-04-22 05:41] LABS: BASOPHILS % (AUTO) 0.4 % (0.0-3.0); EOSINOPHILS # (AUTO) 0.1 K/ul (0.0-0.7); EOSINOPHILS % (AUTO) 1.9 % (0.0-7.0); HEMATOCRIT 29.3 % (37.0-47.0); HEMOGLOBIN 10.1 g/dl (12.0-16.0); IMMATURE GRANULOCYTE # (AUTO) 0.1 (0.0-1.0); IMMATURE GRANULOCYTE % (AUTO) 0.7 % (0.0-5.0); LYMPHOCYTES # (AUTO) 2.3 K/uL (0.60-3.4); LYMPHOCYTES % (AUTO) 33.9 (10.0-50.0); MEAN CORPUSCULAR HEMOGLOBIN 29.2 pg (27.0-31.0); MEAN CORPUSCULAR HGB CONC 34.5 (31.8-35.4); MEAN CORPUSCULAR VOLUME 84.7 fl (81.0-99.0); MONOCYTES # (AUTO) 0.4 K/uL (0.4-2.0); MONOCYTES % (AUTO) 6.3 (0-10); NEUTROPHILS # (AUTO) 3.9 K/ul (2.0-6.9); NEUTROPHILS % (AUTO) 56.8 % (42.2-75.2); PLATELET COUNT 118 10^3/uL (140-440); RDW COEFFICIENT OF VARIATION 13.6 % (11.6-14.8); RED BLOOD COUNT 3.46 10^6/ul (4.20-5.40); WHITE BLOOD COUNT 6.81 K/ul (4.6-10.2)
[2023-04-22 05:52] LABS: ALANINE AMINOTRANSFERASE 20.9 U/L (0-35); ALBUMIN 3.21 g/dL (3.5-5.0); ALKALINE PHOSPHATASE 219.1 U/L (38-126); BILIRUBIN,TOTAL 0.22 mg/dL (0.2-1.3); BLOOD UREA NITROGEN 57.7 mg/dL (7-17); CALCIUM 7.98 mg/dL (8.4-10.2); CARBON DIOXIDE 28.2 mmol/L (22-30.0); CHLORIDE 101.3 mmol/L (98-107); CREATININE 1.85 mg/dL (0.60-1.30); GLUCOSE 196.7 mg/dL (74-106); POTASSIUM 4.36 mmol/L (3.5-5.1); SODIUM 133.6 mmol/L (134.5-145); TOTAL PROTEIN 7.11 g/dL (6.3-8.2)
[2023-04-22] MEDS ORDERED: SYNTHROID PO SCH (06:30)
[2023-04-22] MEDS ORDERED: HUMULIN R SUBCUT PRN (08:02)
[2023-04-22] MEDS: NEURONTIN PO SCH ×3 (08:15→15:47)
[2023-04-22] MEDS: KLONOPIN PO SCH (08:15)
[2023-04-22] MEDS: FLEXERIL PO SCH ×2 (08:16→12:26)
[2023-04-22] MEDS ORDERED: ROCEPHIN 1 GM/50 ML D5W 1 GM/50 ML BAG IV SCH (09:00)
[2023-04-22] MEDS ORDERED: LIPITOR PO SCH (09:00)
[2023-04-22] MEDS ORDERED: ZESTRIL PO SCH (10:00)
--- NOTE | 2023-04-22 11:31 | DCSUM ---
Admission Date Admission Date: 04/21/23 Discharge Date Discharge Date: 04/22/23 Admission Diagnosis Admission Diagnosis: HHS, UTI Discharge Diagnosis Discharge Diagnosis: HHS, UTI Hospital Provider Hospital Provider: LUZ GUZMAN, [facility] [place] Primary Care Physician Primary Care Physician: QUENTIN LEONARD Summary of History and Physical Summary of History and Physical: 47-year-old female presented to the ER with complaints of a headache. Patient states she has had a headache for over the past month. Has taken multiple epie-bjg-dmyoydz medications without relief. Also reports high blood sugar. States at home this morning it was running around 300. After dosing herself with insulin her blood sugars continue to rise. On arrival to the ER it was over 700. She was given 20 units of regular insulin in the ER. Blood sugar at this time is showing greater than 500 on glucometer. Patient still has complaints of a headache after receiving Imitrex. Patient also reports complaints of flank pain bilaterally. Patient denies any fever, chills, chest pain, shortness of breath, nausea, vomiting or diarrhea. Denies any urinary symptoms. 1. Hyperglycemia Hyperosmolar State - insulin gtt per protocol, accuchecks Q1H, serial bmp, NPO. NS@250mL/hr 2. SEPIDEH - NS@250mL/hr, avoid nephrotoxins/hypotension, monitor bmp 3. UTI - urine culture pending, rocephin 1G Q24H 4. Diabetes Mellitus, Type 2 - uncontrolled, check hemoglobin A1C, hold oral medications, see #1 for current plan, likely adjustment of home medications on discharge 5. Diabetic Foot Ulcers - receiving antibiotics for UTI, culturing open ulcers, will refer to podiatry on discharge 6. Hypertension - chronic, stable, continue home medications Hospital Course Subjective: No events overnight. Complaints of ongoing migraine. Sensitive to light and sound - speaks loudly, had phone on loudly watching movie prior to entering room. States "nothing works" Appearance: Pleasant, No Apparent Distress and Alert HEENT: MMM and Supple CVS: No Murmur and No Rubs Abdomen: Soft, Non-Tender and No Distention Respiratory: No Dyspnea Extremities: No Edema Vital Signs: Most Recent Vital Signs Temperature 97 F L 04/22/23 10:00 Temperature Source Oral 04/22/23 10:00 Temperature Source Infrared 04/21/23 12:54 Pulse Rate 69 04/22/23 10:00 Respiratory Rate 16 04/22/23 10:00 Blood Pressure 185/88 H 04/22/23 10:00 Blood Pressure Mean 120 04/22/23 10:00 Blood Pressure Left Arm 179/85 04/21/23 17:06 Blood Pressure Location Right Arm 04/22/23 10:00 Blood Pressure Position Supine 04/22/23 10:00 O2 Sat by Pulse Oximetry 98 04/22/23 10:00 Oxygen Delivery Method Room Air 04/22/23 10:00 Height 5 ft 7 in 04/22/23 09:01 Weight 225 lb 04/22/23 09:01 Telemetry Type Remote Telemetry 04/22/23 07:00 Telemetry Monitoring Continues 04/22/23 07:00 Telemetry Heart Rate 72 04/22/23 07:00 EKG KS Interval 0.19 04/22/23 07:00 EKG QRS Interval 0.07 04/22/23 07:00 Telemetry Strip Reading SR 04/22/23 07:00 Lab Results Last 24 Hours: 04/22/23 04/21/23 04/21/23 05:09 20:14 17:55 WBC 6.81 RBC 3.46 L Hgb 10.1 L Hct 29.3 L MCV 84.7 MCH 29.2 MCHC 34.5 RDW Coeff of Nae 13.6 Plt Count 118 L Immature Gran % (Auto) 0.7 Neut % (Auto) 56.8 Lymph % (Auto) 33.9 [place] % (Auto) 6.3 Eos % (Auto) 1.9 Baso % (Auto) 0.4 Neut # (Auto) 3.9 Lymph # (Auto) 2.3 [place] # (Auto) 0.4 Eos # (Auto) 0.1 Baso # (Auto) 0.0 Immature Gran # (Auto) 0.1 Sodium 133.6 L 136.1 Potassium 4.36 3.23 L Chloride 101.3 101.6 Carbon Dioxide 28.2 27.2 Anion Gap 8.46 10.53 BUN 57.7 H 50.4 H Creatinine 1.85 H 1.91 H Estimated GFR (MDRD) 29.00 28.00 BUN/Creatinine Ratio 31.18 26.38 Glucose 196.7 H D 113.9 H D 552.4 H* D Hemoglobin A1c 10.71 H Calcium 7.98 L 8.27 L Total Bilirubin 0.22 AST 30.0 ALT 20.9 Alkaline Phosphatase 219.1 H D Total Protein 7.11 Albumin 3.21 L Globulin 3.90 Albumin/Globulin Ratio 0.82 Urine Color Urine Clarity Urine pH Ur Specific [place] Urine Protein Urine Glucose (UA) Urine Ketones Urine Blood Urine Nitrite Urine Bilirubin Urine Urobilinogen Ur Leukocyte Esterase Urine Microscopic RBC Urine Microscopic WBC Ur Squamous Epith Cells Amorphous Sediment Urine Bacteria 04/21/23 04/21/23 14:47 14:25 WBC 6.45 RBC 3.48 L Hgb 10.3 L Hct 29.1 L MCV 83.6 MCH 29.6 MCHC 35.4 RDW Coeff of Nae 13.4 Plt Count 139 L Immature Gran % (Auto) 0.6 Neut % (Auto) 63.9 Lymph % (Auto) 27.4 [place] % (Auto) 5.9 Eos % (Auto) 1.7 Baso % (Auto) 0.5 Neut # (Auto) 4.1 Lymph # (Auto) 1.8 [place] # (Auto) 0.4 Eos # (Auto) 0.1 Baso # (Auto) 0.0 Immature Gran # (Auto) 0.0 Sodium 125.0 L Potassium 4.53 Chloride 90.6 L Carbon Dioxide 25.7 Anion Gap 13.23 BUN 54.3 H Creatinine 2.01 H Estimated GFR (MDRD) 26.00 BUN/Creatinine Ratio 27.01 Glucose 721.9 H* Hemoglobin A1c Calcium 7.74 L Total Bilirubin 0.31 AST 28.3 ALT 22.8 Alkaline Phosphatase 321.0 H Total Protein 7.09 Albumin 3.35 L Globulin 3.74 Albumin/Globulin Ratio 0.89 Urine Color Yellow Urine Clarity Cloudy Urine pH 5.0 Ur Specific [place] 1.020 Urine Protein 3+ H Urine Glucose (UA) 2+ H Urine Ketones Negative Urine Blood 1+ H Urine Nitrite Negative Urine Bilirubin Negative Urine Urobilinogen 0.2 Ur Leukocyte Esterase Trace H Urine Microscopic RBC 5-10 Urine Microscopic WBC 10-20 Ur Squamous Epith Cells 5-10 Amorphous Sediment Trace Urine Bacteria 1+ Discharge Instructions Discharge Planning: Discharge Planning > 40 minutes If patient is discharged with left ventricular systolic dysfunction: no Discharged with a beta julia? [] If no, why not? [] Discharged with an yue/arb? [] If no, why not? [] Activity as tolerated Diabetic diet Increase daily dose of lantus from 30 units to 40 units daily. Check sugar prior to meals and dose according to sliding scale instructions. Follow-up with PCP as scheduled. Discharge Medications: Medications at Discharge (Home Meds & RX) albuterol sulfate 90 mcg/actuation aerosol inhaler (ProAir HFA) 2 puff inhalation Q6H PRN shortness of air 11/18/13 cyclobenzaprine 10 mg tablet 10 mg PO QID 11/18/13 gabapentin 300 mg capsule 900 mg PO TID 11/10/15 insulin glargine 100 unit/mL (3 mL) subcutaneous pen (Basaglar KwikPen U-100 Insulin) 30 unit subcut DAILY 09/13/19 sertraline 100 mg tablet (Zoloft) 150 mg PO BEDTIME 10/12/20 atorvastatin 10 mg tablet 10 mg PO DAILY 11/07/21 bumetanide 1 mg tablet 1 mg PO DAILY PRN FLUID RETENTION 11/07/21 insulin lispro 100 unit/mL subcutaneous pen (Admelog SoloStar U-100 Insulin lispro) 45 unit subcut DAILY 11/07/21 levothyroxine 75 mcg tablet 75 mcg PO DAILY 11/07/21 metformin 1,000 mg tablet 1,000 mg PO BID 11/07/21 montelukast 10 mg tablet 10 mg PO BEDTIME 11/07/21 promethazine 25 mg tablet 25 mg PO BEDTIME 11/07/21 clonazepam 0.5 mg tablet 0.5 mg PO BID 04/21/23 famotidine 20 mg tablet 20 mg PO BEDTIME 04/21/23 Discharge Plan Discharge Discharge Orders: Discharge Patient (ONCE); Ordered 04/22/23 Ordered By: MITALI SALMON Activity Restrictions/Additional Instructions: Activity as tolerated Diabetic diet Increase daily dose of lantus from 30 units to 40 units daily. Check sugar prior to meals and dose according to sliding scale instructions. Start taking lisinopril 10 mg daily for high blood pressure. Discuss migraine treatment with PCP at your appointment. YOU HAVE A FOLLOW UP APPOINTMENT WITH QUENTIN LEONARD ON FRIDAY, April AT 1PM. SHOULD YOU HAVE ANY QUESTIONS OR NEED TO RESCHEDULE YOU CAN CONTACT THEIR OFFICE AT [phone]. WOULD BENEFIT FROM [employer] OR [employer] BLOOD GLUCOSE MONITORING SYSTEM. PLEASE DISCUSS THIS WITH YOUR PRIMARY CARE PROVIDER AT YOUR HOSPITAL FOLLOW UP APPOINTMENT. Instructions: Meal Planning with Diabetes Exchanges (GEN), Hyperosmolar Hyperglycemic State (GEN), Diabetes and Exercise (GEN), Type 2 Diabetes Management for Adults (GEN) Patient Disposition: HOME SELF-CARE Prescriptions: New lisinopril 10 mg Tablet 10 mg PO DAILY Qty: 14 0RF insulin lispro [Humalog KwikPen Insulin] 100 unit/mL insulin pen 1 sliding scale dose subcut DIRECTED Qty: 15 0RF Rx Instructions: MASSAC SLIDING SCALE Continued cyclobenzaprine 10 MG tablet 10 mg PO QID albuterol sulfate [ProAir HFA] 1 PUFF HFA aerosol inhaler 2 puff inhalation Q6H PRN (Reason: shortness of air) gabapentin 300 MG capsule 900 mg PO TID clonazepam 0.5 mg tablet 0.5 mg PO BID famotidine 20 mg tablet 20 mg PO BEDTIME sertraline [Zoloft] 100 mg Tablet 150 mg PO BEDTIME atorvastatin 10 mg tablet 10 mg PO DAILY levothyroxine 75 mcg tablet 75 mcg PO DAILY metformin 1,000 mg tablet 1,000 mg PO BID promethazine 25 mg tablet 25 mg PO BEDTIME bumetanide 1 mg tablet 1 mg PO DAILY PRN (Reason: FLUID RETENTION) Rx Instructions: TAKES 1 TAB FOR EVERY 2-3 POUNDS GAINED montelukast 10 mg tablet 10 mg PO BEDTIME Changed insulin glargine [Basaglar KwikPen U-100 Insulin] 100 unit/mL (3 mL) Insulin Pen 40 unit SUBCUT DAILY Qty: 100 0RF Discontinued insulin lispro [Admelog SoloStar U-100 Insulin] 100 unit/mL insulin pen 45 unit SUBCUT DAILY Did you review [place] [employer] for ALL controlled substances?: No Discussed opioids are addictive and Narcan is available by prescription or from pharmacy.: No Condition: Fair
[2023-04-22] MEDS ORDERED: HYDRALAZINE HCL IVP ONE (12:23)
[2023-04-22 14:11] VITALS: BP 126/76; RESP 16; TEMP 96.1
== END 2023-04-22 15:35 | disposition home or self-care (01) | DRG 638 ==
LOC: ED 12:45 → MEDSURG B 16:19
PROVIDERS: ADMIT Hospitalist; ATTEND Nurse Practitioner Family
DX: Z79.899 Other long term (current) drug therapy; G43.909 Migraine, unspecified, not intractable, without status migrainosus; L97.519 Non-pressure chronic ulcer of other part of right foot with unspecified severity; Z79.4 Long term (current) use of insulin; N17.9 Acute kidney failure, unspecified; E11.00 Type 2 diabetes mellitus with hyperosmolarity without nonketotic hyperglycemic-hyperosmolar coma (NKHHC); E78.5 Hyperlipidemia, unspecified; L97.529 Non-pressure chronic ulcer of other part of left foot with unspecified severity; G62.9 Polyneuropathy, unspecified; I11.0 Hypertensive heart disease with heart failure; E03.9 Hypothyroidism, unspecified; I50.9 Heart failure, unspecified; M19.90 Unspecified osteoarthritis, unspecified site; N39.0 Urinary tract infection, site not specified; Z87.891 Personal history of nicotine dependence; Z79.84 Long term (current) use of oral hypoglycemic drugs; E11.621 Type 2 diabetes mellitus with foot ulcer; N20.0 Calculus of kidney; J45.909 Unspecified asthma, uncomplicated; E11.65 Type 2 diabetes mellitus with hyperglycemia; J43.9 Emphysema, unspecified; F31.9 Bipolar disorder, unspecified; Z51.81 Encounter for therapeutic drug level monitoring